=== PATIENT | female | born 1965 | race Caucasian/White ===

== ENCOUNTER 2021-05-21 12:17 | Inpatient (IN) | payer OTHER ==
[~2021-05-21] VITALS: Ht 162.6 cm; Wt 85.7 kg
[~2021-05-21 12:17] MED LIST: LIS10T GT
[2021-05-21 13:35] LABS: Basophils # (auto) 0.2 10 ^3/uL (0-0.2); Eosinophils # (auto) 0.1 10 ^3/uL (0-0.8); Hematocrit 26.6 % (36.0-46.0); Hemoglobin 9.3 g/dL (12.2-16.2); Lymphocytes # (auto) 1.8 10 ^3/uL (0.4-5.4); Mean Corpuscular Hgb Conc. 34.8 g/dL (32.0-36.0); Neutrophils # (auto) 6.8 10 ^3/uL (1.6-8.6)
[2021-05-21 13:37] LABS: Basophils % (auto) 1.6 % (0.0-2.0); Eosinophils % (auto) 0.8 % (0.0-7.0); Lymphocytes % (auto) 18.5 % (10.0-50.0); Mean Corpuscular Hemoglobin 38.8 pg (28.0-32.0); Mean Corpuscular Volume 111.4 fL (80.0-100.0); Monocytes % (auto) 9.8 % (0.0-12.0); Neutrophils % (auto) 69.3 % (37.0-80.0); Red Blood Cells 2.39 10^6/uL (4.0-5.20); Red Cell Distribution Width 14.8 % (11.8-14.3); White Blood Cell 9.9 10^3/uL (4.4-10.8)
[2021-05-21 13:43] LABS: Urine Bacteria NONE SEEN /hpf (None Seen); Urine Blood 3+ /uL (Negative); Urine Budding Yeast MANY /hpf (None Seen); Urine Hyaline Cast FEW /lpf (0 - 2); Urine Mucus FEW (None Seen); Urine Specific Gravity 1.021 (1.001-1.035); Urine WBC 61 /hpf (0 - 5)
[2021-05-21 14:04] LABS: Albumin 2.4 g/dL (3.4-5.0); Anion Gap 8 (5-15); Blood Urea Nitrogen 21 mg/dL (7-18); Calcium 8.3 mg/dL (8.5-10.1); Carbon Dioxide 23 mmol/L (21-32); Chloride 108 mmol/L (98-107); Glucose 101 mg/dL (74-106); Lipase 374 U/L (73-393); Potassium 3.2 mmol/L (3.5-5.1); Sodium 139 mmol/L (136-145)
[2021-05-21 14:09] LABS: Alanine Aminotransferase 26 U/L (13-56); Alkaline Phosphatase 148 U/L (45-117); Aspartate Aminotransferase 60 U/L (15-37); BUN/Creatinine Ratio 10.6; Bilirubin, Total 9.6 mg/dL (0.2-1.0); GFR African American 33 mL/min; GFR Non-African American 27 mL/min; Total Protein 7.7 g/dL (6.4-8.2)
[2021-05-21] MEDS ORDERED: POTASSIUM EFFERVESENT TAB 25 MEQ PO ONE (15:15)
[2021-05-21] MEDS ORDERED: traMADol HCL 50 MG TAB PO PRN ×2 (16:00→16:15)
[2021-05-21] MEDS ORDERED: PANTOPRAZOLE 40 MG/10 ML VIAL INJ IV ONE (16:00)
[2021-05-21] MEDS ORDERED: levoFLOXacin 500MG 100 ML IV ONE (16:00)
[2021-05-21] MEDS ORDERED: MORPHINE SULF INJ 2 MG/ML SYRINGE 1ML IV PRN ×2 (16:00)
[2021-05-21] MEDS ORDERED: PROMETHAZINE HCL 25 MG/ML 1ML IV PRN (16:00)
[2021-05-21] MEDS ORDERED: NITROGLYCERIN 0.4 MG SL TAB SL PRN (16:00)
[2021-05-21 16:37] LABS: Amylase 34 U/L (25-115); Lipase 183 U/L (73-393)
[2021-05-21] MEDS: FUROSEMIDE 40 MG TAB PO SCH (18:00)
[2021-05-21] MEDS: SPIRONOLACTONE 25 MG TAB PO SCH (18:06)
[2021-05-21 18:23] LABS: Hemoglobin 8.7 g/dL (12.2-16.2)
[2021-05-21 18:25] LABS: Hematocrit 24.6 % (36.0-46.0)
[2021-05-21 18:37] LABS: INR 1.85 (0.9-1.15); Partial Thromboplastin Time 35.6 sec (23.0-31.2)
[2021-05-21] MEDS: PANTOPRAZOLE 40 MG TAB PO SCH (21:40)
[2021-05-21] MEDS: metroNIDAZOLE 500MG/100ML 100 ML IV SCH (21:41)
[2021-05-21 22:00] VITALS: BP 119/46
[2021-05-22] VITALS (7 sets, daily range): BP systolic 99–142; BP diastolic 43–94
[2021-05-22 01:53] LABS: Hemoglobin 7.3 g/dL (12.2-16.2)
[2021-05-22 01:54] LABS: Hematocrit 20.3 % (36.0-46.0)
[2021-05-22] MEDS: SPIRONOLACTONE 25 MG TAB PO SCH (05:19)
[2021-05-22] MEDS: metroNIDAZOLE 500MG/100ML 100 ML IV SCH ×2 (05:19→15:03)
[2021-05-22] MEDS: FUROSEMIDE 40 MG TAB PO SCH (05:20)
[2021-05-22 06:06] LABS: Protein, Urine 111.9 mg/dL (0.0-11.9)
[2021-05-22 06:10] LABS: Urine Bacteria FEW /hpf (None Seen); Urine Blood 3+ /uL (Negative); Urine Mucus FEW (None Seen); Urine Specific Gravity 1.017 (1.001-1.035); Urine WBC 45 /hpf (0 - 5)
[2021-05-22] MEDS: levoFLOXacin 250MG 50 ML IV SCH (09:44)
[2021-05-22] MEDS: PANTOPRAZOLE 40 MG TAB PO SCH ×2 (09:44→22:52)
[2021-05-22] MEDS ORDERED: PHYTONADIONE (VIT K)10 MG/ML 1ML VIAL IV ONE (10:30)
[2021-05-22] MEDS ORDERED: phytonadione 10 MG in SODIUM CHL 0.9% 50 ML IV ONE (10:45)
[2021-05-22 11:49] LABS: Albumin 2.1 g/dL (3.4-5.0); Calcium 8.2 mg/dL (8.5-10.1); Potassium 3.1 mmol/L (3.5-5.1)
[2021-05-22 11:52] LABS: Bilirubin, Total 7.3 mg/dL (0.2-1.0); Total Protein 6.8 g/dL (6.4-8.2)
[2021-05-22] MEDS ORDERED: POTASSIUM CHL 20 Meq TABLET PO ONE (12:15)
[2021-05-22 13:22] LABS: % Iron Saturation 98.2 % (15-50)
[2021-05-22 14:36] LABS: Basophils # (auto) 0.1 10 ^3/uL (0-0.2); Eosinophils # (auto) 0.1 10 ^3/uL (0-0.8); Eosinophils % (auto) 1.6 % (0.0-7.0); Hemoglobin 7.8 g/dL (12.2-16.2); White Blood Cell 6.3 10^3/uL (4.4-10.8)
[2021-05-22 14:39] LABS: Basophils % (auto) 1.3 % (0.0-2.0); Hematocrit 22.3 % (36.0-46.0); Lymphocytes # (auto) 1.5 10 ^3/uL (0.4-5.4); Lymphocytes % (auto) 23.2 % (10.0-50.0); Mean Corpuscular Hemoglobin 38.8 pg (28.0-32.0); Mean Corpuscular Volume 110.8 fL (80.0-100.0); Monocytes # (auto) 0.8 10 ^3/uL (0-1.3); Monocytes % (auto) 12.1 % (0.0-12.0); Neutrophils # (auto) 3.9 10 ^3/uL (1.6-8.6); Neutrophils % (auto) 61.8 % (37.0-80.0); Nucleated Red Blood Cells % 0.1 %; Red Blood Cells 2.01 10^6/uL (4.0-5.20); Red Cell Distribution Width 14.7 % (11.8-14.3)
[2021-05-22] MEDS: ALBUMIN 25% 100 ML IV SCH ×2 (17:29→22:52)
[2021-05-22] MEDS: LACTULOSE 20Gm/30ML SOLN PO SCH (22:52)
[2021-05-23] VITALS (12 sets, daily range): BP systolic 95–128; BP diastolic 43–82
[2021-05-23] MEDS: metroNIDAZOLE 500MG/100ML 100 ML IV SCH ×4 (00:09→22:10)
[2021-05-23] MEDS: ALBUMIN 25% 100 ML IV SCH (05:00)
[2021-05-23 06:28] LABS: Eosinophils # (auto) 0.1 10 ^3/uL (0-0.8); Hematocrit 19.4 % (36.0-46.0); Lymphocytes # (auto) 1.6 10 ^3/uL (0.4-5.4); Mean Corpuscular Hgb Conc. 35.5 g/dL (32.0-36.0); Monocytes # (auto) 0.5 10 ^3/uL (0-1.3); Monocytes % (auto) 10.6 % (0.0-12.0); Neutrophils # (auto) 2.6 10 ^3/uL (1.6-8.6); White Blood Cell 4.9 10^3/uL (4.4-10.8)
[2021-05-23 06:31] LABS: Basophils # (auto) 0.1 10 ^3/uL (0-0.2); Basophils % (auto) 1.4 % (0.0-2.0); Eosinophils % (auto) 1.7 % (0.0-7.0); Lymphocytes % (auto) 32.1 % (10.0-50.0); Mean Corpuscular Hemoglobin 39.4 pg (28.0-32.0); Mean Corpuscular Volume 110.9 fL (80.0-100.0); Neutrophils % (auto) 54.2 % (37.0-80.0); Nucleated Red Blood Cells % 0.2 %; Red Blood Cells 1.75 10^6/uL (4.0-5.20); Red Cell Distribution Width 14.6 % (11.8-14.3)
[2021-05-23 06:40] LABS: Hemoglobin 6.9 g/dL (12.2-16.2)
[2021-05-23 06:48] LABS: Albumin 2.9 g/dL (3.4-5.0); Calcium 8.2 mg/dL (8.5-10.1); Potassium 3.1 mmol/L (3.5-5.1)
[2021-05-23 06:52] LABS: BUN/Creatinine Ratio 9.5; Bilirubin, Total 5.4 mg/dL (0.2-1.0); Total Protein 6.5 g/dL (6.4-8.2)
[2021-05-23 07:49] LABS: INR 2.4 (0.9-1.15)
[2021-05-23] MEDS: LACTULOSE 20Gm/30ML SOLN PO SCH (09:30)
[2021-05-23] MEDS: levoFLOXacin 250MG 50 ML IV SCH (09:30)
[2021-05-23] MEDS: PANTOPRAZOLE 40 MG TAB PO SCH ×2 (09:30→22:10)
[2021-05-23] MEDS: FUROSEMIDE 40 MG TAB PO SCH (09:30)
[2021-05-23] MEDS ORDERED: PHYTONADIONE (VIT K)10 MG/ML 1ML VIAL IV ONE (12:15)
[2021-05-23] MEDS ORDERED: POTASSIUM CHL 20 Meq TABLET PO ONE (12:30)
[2021-05-23] MEDS ORDERED: phytonadione 10 MG in SODIUM CHL 0.9% 50 ML IV ONE (12:45)
[2021-05-24 05:28] VITALS: BP 122/61
[2021-05-24] MEDS: metroNIDAZOLE 500MG/100ML 100 ML IV SCH (05:37)
[2021-05-24 06:13] LABS: Eosinophils # (auto) 0.1 10 ^3/uL (0-0.8); Hemoglobin 9.3 g/dL (12.2-16.2); Monocytes # (auto) 0.6 10 ^3/uL (0-1.3); Nucleated Red Blood Cells % 0.2 %
[2021-05-24 06:15] LABS: Basophils # (auto) 0.1 10 ^3/uL (0-0.2); Basophils % (auto) 1.3 % (0.0-2.0); Eosinophils % (auto) 1.9 % (0.0-7.0); Hematocrit 25.9 % (36.0-46.0); Lymphocytes # (auto) 1.7 10 ^3/uL (0.4-5.4); Lymphocytes % (auto) 27.9 % (10.0-50.0); Mean Corpuscular Hemoglobin 36.8 pg (28.0-32.0); Mean Corpuscular Hgb Conc. 36.1 g/dL (32.0-36.0); Mean Corpuscular Volume 102.1 fL (80.0-100.0); Monocytes % (auto) 9.5 % (0.0-12.0); Neutrophils # (auto) 3.6 10 ^3/uL (1.6-8.6); Neutrophils % (auto) 59.4 % (37.0-80.0); Red Blood Cells 2.54 10^6/uL (4.0-5.20)
[2021-05-24 06:20] LABS: Red Cell Distribution Width 22.6 % (11.8-14.3)
[2021-05-24 07:46] LABS: INR 1.72 (0.9-1.15)
[2021-05-24 09:00] VITALS: BP 98/65
[2021-05-24] MEDS: levoFLOXacin 250MG 50 ML IV SCH (09:58)
[2021-05-24] MEDS: FUROSEMIDE 40 MG TAB PO SCH (09:58)
[2021-05-24] MEDS: PANTOPRAZOLE 40 MG TAB PO SCH (09:59)
[2021-05-24] MEDS ORDERED: LACTULOSE 20Gm/30ML SOLN PO SCH (10:00)
[2021-05-24 10:45] VITALS: BP 112/72
[2021-05-24] MEDS ORDERED: POTASSIUM EFFERVESENT TAB 25 MEQ GT ONE (12:30)
[2021-05-25 12:01] LABS: Hepatitis B Surface Antibody Positive
[2021-05-25 12:28] LABS: Hepatitis A Total Antibody Negative
[2021-05-25 15:03] LABS: Hepatitis A Ab IgM Negative; Hepatitis B Core IgM Negative; Hepatitis B Surface Antigen Negative (Negative); Hepatitis C Antibody Negative (Negative)
[2021-05-25 15:10] LABS: Hepatitis B Core Total AB Positive; Hepatitis B Surface Antigen Negative (Negative); Hepatitis C Antibody Negative (Negative)
== END 2021-05-24 11:36 | disposition home or self-care (01) | DRG 432 ==
LOC: ER 12:17 → TELE 15:56 → TELE-WESTW 19:58
PROVIDERS: ADMIT Internal Medicine; ATTEND Family Medicine
PROC: 0W9G3ZZ Drainage of Peritoneal Cavity, Percutaneous Approach (ICD-10-PCS; principal; 2021-05-22)
PROC: 30233N1 Transfusion of Nonautologous Red Blood Cells into Peripheral Vein, Percutaneous Approach (ICD-10-PCS; 2021-05-23)
DX: K70.31 Alcoholic cirrhosis of liver with ascites (principal); N17.0 Acute kidney failure with tubular necrosis; B18.1 Chronic viral hepatitis B without delta-agent; D68.9 Coagulation defect, unspecified; N39.0 Urinary tract infection, site not specified; D64.9 Anemia, unspecified; D69.6 Thrombocytopenia, unspecified; E11.22 Type 2 diabetes mellitus with diabetic chronic kidney disease; Z20.822 Contact with and (suspected) exposure to COVID-19; E87.6 Hypokalemia; F17.210 Nicotine dependence, cigarettes, uncomplicated; F41.9 Anxiety disorder, unspecified; R80.9 Proteinuria, unspecified; R31.9 Hematuria, unspecified; F32.9 Major depressive disorder, single episode, unspecified; I12.9 Hypertensive chronic kidney disease with stage 1 through stage 4 chronic kidney disease, or unspecified chronic kidney disease; J45.909 Unspecified asthma, uncomplicated; N18.9 Chronic kidney disease, unspecified; Z83.3 Family history of diabetes mellitus; Z87.442 Personal history of urinary calculi; Z88.0 Allergy status to penicillin; Z88.5 Allergy status to narcotic agent; Z86.19 Personal history of other infectious and parasitic diseases; Z91.19 Patient's noncompliance with other medical treatment and regimen
CPT/HCPCS: 36415; 71045; 74176; 76700; 76775; 76942; 80053; 80074; 81001; 82140; 82150; 82270; 82378; 82570; 83540; 83550; 83690; 84156; 84300; 84484; 85014; 85018; 85025; 85045; 85610; 85730; 86704; 86706; 86708; 86803; 86850; 86900; 86901; 86920; 87086; 87205; 87340; 87426; 89051; 93005; 96365; 96375; C9113; G0378; J1956; J3430; J3490; P9047

== ENCOUNTER 2021-07-10 15:13 | Inpatient (IN) | payer OTHER ==
[~2021-07-10] VITALS: Ht 162.6 cm; Wt 75.7 kg
[2021-07-10 17:01] LABS: Eosinophils # (auto) 0.1 10 ^3/uL (0-0.8); Hemoglobin 7.6 g/dL (12.2-16.2); Monocytes # (auto) 0.9 10 ^3/uL (0-1.3); Neutrophils # (auto) 6.7 10 ^3/uL (1.6-8.6); White Blood Cell 9.2 10^3/uL (4.4-10.8)
[2021-07-10 17:04] LABS: Basophils # (auto) 0 10 ^3/uL (0-0.2); Basophils % (auto) 0.2 % (0.0-2.0); Eosinophils % (auto) 1.1 % (0.0-7.0); Hematocrit 21.9 % (36.0-46.0); Lymphocytes # (auto) 1.5 10 ^3/uL (0.4-5.4); Mean Corpuscular Hemoglobin 39.3 pg (28.0-32.0); Mean Corpuscular Hgb Conc. 34.9 g/dL (32.0-36.0); Mean Corpuscular Volume 112.6 fL (80.0-100.0); Monocytes % (auto) 9.7 % (0.0-12.0); Red Blood Cells 1.94 10^6/uL (4.0-5.20); Red Cell Distribution Width 15.3 % (11.8-14.3)
[2021-07-10 17:12] LABS: Albumin 2.5 g/dL (3.4-5.0); Calcium 9.3 mg/dL (8.5-10.1)
[2021-07-10 17:16] LABS: BUN/Creatinine Ratio 21.9; Bilirubin, Total 7.8 mg/dL (0.2-1.0); Total Protein 7.9 g/dL (6.4-8.2)
[2021-07-10 17:21] LABS: INR 1.49 (0.9-1.15); Partial Thromboplastin Time 34.2 sec (23.6-33.0)
[2021-07-10] MEDS ORDERED: IBUPROFEN 400 MG TAB PO PRN (23:00)
[2021-07-10] MEDS ORDERED: NITROGLYCERIN 0.4 MG SL TAB SL PRN (23:00)
[2021-07-10] MEDS ORDERED: ONDANSETRON HCL 4 MG/2 ML VIAL IV PRN (23:00)
[2021-07-10] MEDS ORDERED: OCTREOTIDE ACETATE 500 MCG in SODIUM CHL 0.9% 99 ML IV SCH (23:00)
[2021-07-10] MEDS ORDERED: POTASSIUM CHL 20MEQ/100ML 100 ML IV ONE (23:00)
[2021-07-10] MEDS ORDERED: ALBUMIN 25% 50 ML IV ONE (23:00)
[2021-07-11] MEDS: D5W/SOD CHLO 0.9% 1,000 ML IV SCH ×2 (02:46→18:56)
[2021-07-11 05:59] LABS: Potassium 3.4 mmol/L (3.5-5.1)
[2021-07-11 06:05] LABS: Albumin 2.5 g/dL (3.4-5.0); BUN/Creatinine Ratio 20.5
[2021-07-11 06:19] LABS: Basophils # (auto) 0.1 10 ^3/uL (0-0.2); Hematocrit 19.9 % (36.0-46.0); Neutrophils # (auto) 7.2 10 ^3/uL (1.6-8.6); Red Blood Cells 1.77 10^6/uL (4.0-5.20)
[2021-07-11 06:21] LABS: Basophils % (auto) 0.9 % (0.0-2.0); Eosinophils # (auto) 0 10 ^3/uL (0-0.8); Eosinophils % (auto) 0.5 % (0.0-7.0); Hemoglobin 7.1 g/dL (12.2-16.2); Lymphocytes # (auto) 1.4 10 ^3/uL (0.4-5.4); Lymphocytes % (auto) 14.2 % (10.0-50.0); Mean Corpuscular Hemoglobin 39.9 pg (28.0-32.0); Mean Corpuscular Hgb Conc. 35.5 g/dL (32.0-36.0); Mean Corpuscular Volume 112.4 fL (80.0-100.0); Monocytes # (auto) 0.9 10 ^3/uL (0-1.3); Monocytes % (auto) 9.5 % (0.0-12.0); Neutrophils % (auto) 74.9 % (37.0-80.0); Red Cell Distribution Width 14.8 % (11.8-14.3); White Blood Cell 9.6 10^3/uL (4.4-10.8)
[2021-07-11] MEDS: metroNIDAZOLE 500MG/100ML 100 ML IV SCH ×3 (06:45→21:22)
[2021-07-11] MEDS: ASCORBIC ACID 500 MG TAB PO SCH ×2 (09:55→21:22)
[2021-07-11] MEDS: MULTIPLE VITAMIN TAB PO SCH (09:55)
[2021-07-11] MEDS: ZINC SULFATE 220mg CAP or TAB PO SCH (09:56)
[2021-07-11] MEDS ORDERED: levoFLOXacin 250MG 50 ML IV ONE (12:15)
[2021-07-11] MEDS ORDERED: POTASSIUM CHLORIDE 8 MEQ TAB PO ONE (12:15)
[2021-07-11 13:00] VITALS: BP 102/54
[2021-07-11] MEDS: FAMOTIDINE (10MG/ML) 2ML VL IV SCH ×2 (13:32→21:22)
[2021-07-11 16:43] VITALS: BP 89/39
[2021-07-11 22:00] VITALS: BP 94/39
[2021-07-12] VITALS (7 sets, daily range): BP systolic 97–120; BP diastolic 42–62
[2021-07-12 05:10] LABS: Urine Bacteria MANY /hpf (None Seen); Urine Blood 3+ /uL (Negative); Urine Budding Yeast FEW /hpf (None Seen); Urine Hyaline Cast FEW /lpf (0 - 2); Urine Mucus FEW (None Seen); Urine Specific Gravity 1.013 (1.001-1.035); Urine WBC 4 /hpf (0 - 5)
[2021-07-12] MEDS: metroNIDAZOLE 500MG/100ML 100 ML IV SCH ×3 (05:38→21:49)
[2021-07-12 06:36] LABS: Basophils # (auto) 0.1 10 ^3/uL (0-0.2); Eosinophils # (auto) 0.1 10 ^3/uL (0-0.8); Eosinophils % (auto) 1.3 % (0.0-7.0)
[2021-07-12 06:40] LABS: Basophils % (auto) 1.3 % (0.0-2.0); Hematocrit 17.5 % (36.0-46.0); Lymphocytes # (auto) 1.5 10 ^3/uL (0.4-5.4); Lymphocytes % (auto) 22.1 % (10.0-50.0); Mean Corpuscular Hemoglobin 39.9 pg (28.0-32.0); Mean Corpuscular Hgb Conc. 35.6 g/dL (32.0-36.0); Mean Corpuscular Volume 112.1 fL (80.0-100.0); Monocytes # (auto) 0.9 10 ^3/uL (0-1.3); Neutrophils # (auto) 4.2 10 ^3/uL (1.6-8.6); Neutrophils % (auto) 62.3 % (37.0-80.0); Nucleated Red Blood Cells % 0.1 %; Red Blood Cells 1.56 10^6/uL (4.0-5.20); Red Cell Distribution Width 14.9 % (11.8-14.3); White Blood Cell 6.8 10^3/uL (4.4-10.8)
[2021-07-12 06:50] LABS: BUN/Creatinine Ratio 20.6; Bilirubin, Direct 2.8 mg/dL (0-0.2); Calcium 8.6 mg/dL (8.5-10.1); Potassium 3.2 mmol/L (3.5-5.1)
[2021-07-12 06:54] LABS: Hemoglobin 6.2 g/dL (12.2-16.2)
[2021-07-12 06:57] LABS: Bilirubin, Total 5.2 mg/dL (0.2-1.0); Phosphorus 3.2 mg/dL (2.5-4.90); Total Protein 6.5 g/dL (6.4-8.2)
[2021-07-12] MEDS: levoFLOXacin 250MG 50 ML IV SCH (09:45)
[2021-07-12] MEDS: ASCORBIC ACID 500 MG TAB PO SCH (09:46)
[2021-07-12] MEDS: MULTIPLE VITAMIN TAB PO SCH (09:46)
[2021-07-12] MEDS: ZINC SULFATE 220mg CAP or TAB PO SCH (09:46)
[2021-07-12] MEDS ORDERED: PANTOPRAZOLE 40 MG TAB PO ONE (10:00)
[2021-07-12] MEDS ORDERED: PANTOPRAZOLE 40 MG TAB PO SCH (10:00)
[2021-07-12] MEDS: PANTOPRAZOLE 40 MG TAB PO SCH ×2 (10:42→21:49)
[2021-07-12] MEDS: LACTULOSE 20Gm/30ML SOLN PO SCH ×2 (10:42→21:49)
[2021-07-12] MEDS: POTASSIUM CHL 10 Meq TABLET PO SCH (10:42)
[2021-07-12] MEDS ORDERED: FUROSEMIDE 20 MG/2 ML VIAL IV ONE (19:00)
[2021-07-13 00:45] VITALS: BP 104/43
[2021-07-13 01:02] VITALS: BP 105/64
[2021-07-13 04:20] VITALS: BP 106/64
[2021-07-13 05:45] VITALS: BP 110/50
[2021-07-13] MEDS: metroNIDAZOLE 500MG/100ML 100 ML IV SCH ×3 (05:52→23:16)
[2021-07-13 07:24] LABS: Basophils # (auto) 0.1 10 ^3/uL (0-0.2); Basophils % (auto) 1.4 % (0.0-2.0); Eosinophils # (auto) 0.1 10 ^3/uL (0-0.8)
[2021-07-13 07:26] LABS: Eosinophils % (auto) 1.4 % (0.0-7.0); Lymphocytes # (auto) 1.6 10 ^3/uL (0.4-5.4); Lymphocytes % (auto) 22.7 % (10.0-50.0); Mean Corpuscular Hemoglobin 36.2 pg (28.0-32.0); Mean Corpuscular Volume 103.6 fL (80.0-100.0); Monocytes % (auto) 13.9 % (0.0-12.0); Neutrophils # (auto) 4.4 10 ^3/uL (1.6-8.6); Neutrophils % (auto) 60.6 % (37.0-80.0); Nucleated Red Blood Cells % 0.1 %; Red Blood Cells 2.19 10^6/uL (4.0-5.20); Red Cell Distribution Width 23.8 % (11.8-14.3); White Blood Cell 7.2 10^3/uL (4.4-10.8)
[2021-07-13 07:31] LABS: Hematocrit 22.9 % (36.0-46.0)
[2021-07-13 07:42] LABS: BUN/Creatinine Ratio 18.8; Calcium 8.9 mg/dL (8.5-10.1)
[2021-07-13 07:51] LABS: Total Protein 6.6 g/dL (6.4-8.2)
[2021-07-13 07:56] LABS: Potassium 2.9 mmol/L (3.5-5.1)
[2021-07-13] MEDS ORDERED: POTASSIUM CHL 20 Meq TABLET PO ONE ×2 (08:45→09:45)
[2021-07-13] MEDS: PANTOPRAZOLE 40 MG TAB PO SCH ×3 (10:00→23:17)
[2021-07-13] MEDS: MULTIPLE VITAMIN TAB PO SCH (10:05)
[2021-07-13] MEDS: levoFLOXacin 250MG 50 ML IV SCH (10:05)
[2021-07-13] MEDS: LACTULOSE 20Gm/30ML SOLN PO SCH ×2 (10:05→23:17)
[2021-07-13] MEDS: POTASSIUM CHL 10 Meq TABLET PO SCH (10:06)
[2021-07-13 22:17] VITALS: BP 113/48
[2021-07-14 05:09] LABS: Eosinophils # (auto) 0.1 10 ^3/uL (0-0.8); Nucleated Red Blood Cells % 0.1 %
[2021-07-14 05:13] LABS: Basophils # (auto) 0.1 10 ^3/uL (0-0.2); Basophils % (auto) 1.8 % (0.0-2.0); Eosinophils % (auto) 1.7 % (0.0-7.0); Hematocrit 22.7 % (36.0-46.0); Lymphocytes # (auto) 1.8 10 ^3/uL (0.4-5.4); Lymphocytes % (auto) 23.8 % (10.0-50.0); Mean Corpuscular Hemoglobin 36.5 pg (28.0-32.0); Mean Corpuscular Hgb Conc. 35.3 g/dL (32.0-36.0); Mean Corpuscular Volume 103.4 fL (80.0-100.0); Monocytes % (auto) 12.9 % (0.0-12.0); Neutrophils # (auto) 4.5 10 ^3/uL (1.6-8.6); Neutrophils % (auto) 59.8 % (37.0-80.0); Red Blood Cells 2.19 10^6/uL (4.0-5.20); White Blood Cell 7.6 10^3/uL (4.4-10.8)
[2021-07-14 05:16] LABS: Red Cell Distribution Width 23.7 % (11.8-14.3)
[2021-07-14 05:23] LABS: INR 1.73 (0.9-1.15)
[2021-07-14 05:32] LABS: Calcium 8.9 mg/dL (8.5-10.1); Potassium 3.3 mmol/L (3.5-5.1)
[2021-07-14 05:34] LABS: BUN/Creatinine Ratio 16.8
[2021-07-14] MEDS: metroNIDAZOLE 500MG/100ML 100 ML IV SCH (05:45)
[2021-07-14 05:46] LABS: Bilirubin, Total 6.2 mg/dL (0.2-1.0); Total Protein 6.9 g/dL (6.4-8.2)
[2021-07-14] MEDS ORDERED: LIDOCAINE VISCOUS 2% 15ML UD ONE (08:31)
[2021-07-14] MEDS ORDERED: SODIUM CHLORIDE LOCK 10 ML ONE (08:31)
[2021-07-14] MEDS ORDERED: diphenhdrAMINE HCL 50 MG/1 ML VL ONE (08:31)
[2021-07-14] MEDS: levoFLOXacin 250MG 50 ML IV SCH (08:34)
[2021-07-14] MEDS: MULTIPLE VITAMIN TAB PO SCH (08:36)
[2021-07-14] MEDS: LACTULOSE 20Gm/30ML SOLN PO SCH ×2 (08:36→22:54)
[2021-07-14] MEDS: PANTOPRAZOLE 40 MG TAB PO SCH ×2 (08:36→08:37)
[2021-07-14] MEDS: POTASSIUM CHL 10 Meq TABLET PO SCH (08:36)
[2021-07-14 09:00] VITALS: BP 104/46
[2021-07-14 10:41] VITALS: BP 91/50
[2021-07-14 10:52] VITALS: BP 103/42
[2021-07-14 12:00] VITALS: BP 120/60
[2021-07-14] MEDS: fentaNYL CITRATE 100 MCG/2 ML VL ONE ×2 (13:19→13:24)
[2021-07-14] MEDS: MIDAZOLAM HCL 5 MG/ML-1ML VIAL ONE ×2 (13:19→13:24)
[2021-07-14] MEDS ORDERED: ALBUMIN 5% 250 ML IV ONE ×2 (14:00→14:02)
[2021-07-14] MEDS ORDERED: SODIUM CHLORIDE 0.9% 500 ML IV ONE (14:00)
[2021-07-14] MEDS: POTASSIUM CHL 20MEQ/100ML 100 ML IV SCH ×2 (15:04→18:58)
[2021-07-14] MEDS: OCTREOTIDE ACETATE 100 MCG/ML VL SUBCUT SCH ×2 (15:42→22:54)
[2021-07-14] MEDS ORDERED: cefTRIAXone 1GM/50ML D5W 50 ML IV ONE (16:30)
[2021-07-14 16:35] LABS: Protein, Urine 56.2 mg/dL (0.0-11.9)
[2021-07-14 16:36] LABS: Creatinine, Urine 120 mg/dL (30.0-125.0); Sodium Urine 11 mmol/L (40-220)
[2021-07-14 16:44] LABS: Protein, Urine 35.6 mg/dL (0.0-11.9)
[2021-07-14 22:23] VITALS: BP 104/45
[2021-07-15 05:27] VITALS: BP 99/34
[2021-07-15 05:52] LABS: INR 1.72 (0.9-1.15)
[2021-07-15 06:01] LABS: Potassium 4.5 mmol/L (3.5-5.1)
[2021-07-15] MEDS: OCTREOTIDE ACETATE 100 MCG/ML VL SUBCUT SCH ×2 (06:06→14:00)
[2021-07-15 06:15] LABS: Basophils # (auto) 0.1 10 ^3/uL (0-0.2); Eosinophils # (auto) 0.1 10 ^3/uL (0-0.8); Hemoglobin 8.2 g/dL (12.2-16.2); Neutrophils # (auto) 4.6 10 ^3/uL (1.6-8.6)
[2021-07-15 06:23] LABS: Basophils % (auto) 0.9 % (0.0-2.0); Eosinophils % (auto) 1.5 % (0.0-7.0); Lymphocytes # (auto) 1.1 10 ^3/uL (0.4-5.4); Lymphocytes % (auto) 16.4 % (10.0-50.0); Mean Corpuscular Hemoglobin 37.3 pg (28.0-32.0); Mean Corpuscular Hgb Conc. 35.6 g/dL (32.0-36.0); Mean Corpuscular Volume 104.9 fL (80.0-100.0); Monocytes # (auto) 0.8 10 ^3/uL (0-1.3); Monocytes % (auto) 11.6 % (0.0-12.0); Neutrophils % (auto) 69.6 % (37.0-80.0); Nucleated Red Blood Cells % 0.1 %; Red Blood Cells 2.19 10^6/uL (4.0-5.20); White Blood Cell 6.6 10^3/uL (4.4-10.8)
[2021-07-15 06:24] LABS: Albumin 2.1 g/dL (3.4-5.0); BUN/Creatinine Ratio 15.7; Bilirubin, Total 5.7 mg/dL (0.2-1.0); Calcium 8.7 mg/dL (8.5-10.1); Magnesium 2.6 mg/dL (1.6-2.6); Phosphorus 2.6 mg/dL (2.5-4.90); Total Protein 6.3 g/dL (6.4-8.2)
[2021-07-15 06:25] LABS: Red Cell Distribution Width 22.9 % (11.8-14.3)
[2021-07-15] MEDS: LACTULOSE 20Gm/30ML SOLN PO SCH (08:08)
[2021-07-15] MEDS: PANTOPRAZOLE 40 MG TAB PO SCH (08:09)
[2021-07-15] MEDS: POTASSIUM CHL 10 Meq TABLET PO SCH (08:09)
[2021-07-15] MEDS: MULTIPLE VITAMIN TAB PO SCH (08:09)
[2021-07-15] MEDS ORDERED: cefTRIAXone 1GM/50ML D5W 50 ML IV SCH (09:00)
[2021-07-15] MEDS ORDERED: MIDODRINE HCL 10 MG TAB PO SCH (12:00)
== END 2021-07-15 15:30 | disposition home or self-care (01) | DRG 432 ==
LOC: ER 15:13 → TELE 22:50 → TELE-WESTW 07-11 11:43
PROVIDERS: ADMIT Nurse Practitioner Family; ATTEND Internal Medicine
PROC: 30233N1 Transfusion of Nonautologous Red Blood Cells into Peripheral Vein, Percutaneous Approach (ICD-10-PCS; 2021-07-12)
PROC: 0W9G3ZZ Drainage of Peritoneal Cavity, Percutaneous Approach (ICD-10-PCS; 2021-07-14)
PROC: 30233K1 Transfusion of Nonautologous Frozen Plasma into Peripheral Vein, Percutaneous Approach (ICD-10-PCS; 2021-07-14)
PROC: 06L38CZ Occlusion of Esophageal Vein with Extraluminal Device, Via Natural or Artificial Opening Endoscopic (ICD-10-PCS; principal; 2021-07-14 13:13)
DX: K70.31 Alcoholic cirrhosis of liver with ascites (principal); N17.0 Acute kidney failure with tubular necrosis; K76.7 Hepatorenal syndrome; I85.11 Secondary esophageal varices with bleeding; K76.6 Portal hypertension; N18.4 Chronic kidney disease, stage 4 (severe); D68.4 Acquired coagulation factor deficiency; J98.11 Atelectasis; Z20.822 Contact with and (suspected) exposure to COVID-19; D69.59 Other secondary thrombocytopenia; E87.6 Hypokalemia; I12.9 Hypertensive chronic kidney disease with stage 1 through stage 4 chronic kidney disease, or unspecified chronic kidney disease; D63.8 Anemia in other chronic diseases classified elsewhere; F41.9 Anxiety disorder, unspecified; F32.9 Major depressive disorder, single episode, unspecified; E11.22 Type 2 diabetes mellitus with diabetic chronic kidney disease; F17.200 Nicotine dependence, unspecified, uncomplicated; R16.1 Splenomegaly, not elsewhere classified; J45.909 Unspecified asthma, uncomplicated; K31.89 Other diseases of stomach and duodenum; Z66 Do not resuscitate; K57.90 Diverticulosis of intestine, part unspecified, without perforation or abscess without bleeding; Z88.5 Allergy status to narcotic agent; Z88.0 Allergy status to penicillin; Z79.899 Other long term (current) drug therapy; Z80.3 Family history of malignant neoplasm of breast; Z80.6 Family history of leukemia; Z82.49 Family history of ischemic heart disease and other diseases of the circulatory system; Z87.442 Personal history of urinary calculi
CPT/HCPCS: 36415; 43244; 71045; 71250; 74176; 76604; 76700; 76942; 80048; 80053; 80076; 81001; 82570; 83036; 83735; 83880; 84100; 84132; 84156; 84300; 85025; 85610; 85730; 86850; 86900; 86901; 86920; 87426; 96365; 96366; 96367; G0378; J0696; J2250; J3480; J3490

== ENCOUNTER 2021-07-29 11:21 | Inpatient (IN) | payer OTHER ==
[~2021-07-29] VITALS: Ht 167.6 cm; Wt 70.0 kg
[2021-07-29 12:19] LABS: Eosinophils # (auto) 0.1 10 ^3/uL (0-0.8); Eosinophils % (auto) 1.1 % (0.0-7.0); Hematocrit 21.4 % (36.0-46.0); Hemoglobin 7.4 g/dL (12.2-16.2); Monocytes # (auto) 1.1 10 ^3/uL (0-1.3); White Blood Cell 8.6 10^3/uL (4.4-10.8)
[2021-07-29 12:22] LABS: Basophils # (auto) 0.2 10 ^3/uL (0-0.2); Basophils % (auto) 1.8 % (0.0-2.0); Lymphocytes # (auto) 1.5 10 ^3/uL (0.4-5.4); Lymphocytes % (auto) 17.7 % (10.0-50.0); Mean Corpuscular Hemoglobin 37.6 pg (28.0-32.0); Mean Corpuscular Hgb Conc. 34.5 g/dL (32.0-36.0); Mean Corpuscular Volume 109.1 fL (80.0-100.0); Monocytes % (auto) 12.5 % (0.0-12.0); Neutrophils # (auto) 5.8 10 ^3/uL (1.6-8.6); Neutrophils % (auto) 66.9 % (37.0-80.0); Red Blood Cells 1.96 10^6/uL (4.0-5.20)
[2021-07-29 12:31] LABS: Red Cell Distribution Width 23.1 % (11.8-14.3)
[2021-07-29 12:37] LABS: Chloride 107 mmol/L (98-107); Potassium 4.7 mmol/L (3.5-5.1); Sodium 135 mmol/L (136-145)
[2021-07-29 12:50] LABS: Alanine Aminotransferase 23 U/L (13-56); Albumin 2.3 g/dL (3.4-5.0); Alkaline Phosphatase 84 U/L (45-117); Anion Gap 13 (5-15); Aspartate Aminotransferase 53 U/L (15-37); BUN/Creatinine Ratio 21.5; Bilirubin, Total 5.5 mg/dL (0.2-1.0); Blood Urea Nitrogen 53 mg/dL (7-18); Carbon Dioxide 15 mmol/L (21-32); GFR African American 26 mL/min; GFR Non-African American 21 mL/min; Glucose 100 mg/dL (74-106); Total Protein 7.6 g/dL (6.4-8.2)
[2021-07-30] MEDS ORDERED: TEMAZEPAM 15 MG CAP PO PRN (00:30)
[2021-07-30] MEDS ORDERED: ONDANSETRON HCL 4 MG/2 ML VIAL IV PRN (00:30)
[2021-07-30 01:04] LABS: INR 1.6 (0.9-1.15)
[2021-07-30 09:35] LABS: Urine Bacteria MOD /hpf (None Seen); Urine Blood 3+ /uL (Negative); Urine Budding Yeast FEW /hpf (None Seen); Urine Specific Gravity 1.013 (1.001-1.035); Urine WBC 5 /hpf (0 - 5)
[2021-07-30] MEDS: LACTULOSE 20Gm/30ML SOLN PO SCH ×2 (11:00→21:45)
[2021-07-30] MEDS: PANTOPRAZOLE 40 MG TAB PO SCH (11:00)
[2021-07-30] MEDS: ALBUMIN 25% 100 ML IV SCH ×2 (11:30→19:49)
[2021-07-30] MEDS ORDERED: POTA1TAB4 PO (13:16)
[2021-07-30] MEDS ORDERED: LACT10SO3 PO (13:16)
[2021-07-30] MEDS ORDERED: MET500T PO (13:16)
[2021-07-30] MEDS ORDERED: LEVO-28 PO (13:16)
[2021-07-30 22:30] VITALS: BP 96/56
[2021-07-31] VITALS (8 sets, daily range): BP systolic 91–120; BP diastolic 42–59
[2021-07-31] MEDS: ALBUMIN 25% 100 ML IV SCH ×3 (02:58→17:47)
[2021-07-31 06:35] LABS: Albumin 2.8 g/dL (3.4-5.0); BUN/Creatinine Ratio 21.5; Bilirubin, Total 4.6 mg/dL (0.2-1.0); Calcium 9.2 mg/dL (8.5-10.1); Total Protein 6.6 g/dL (6.4-8.2)
[2021-07-31 08:02] LABS: Basophils # (auto) 0.1 10 ^3/uL (0-0.2); Eosinophils # (auto) 0.1 10 ^3/uL (0-0.8); Eosinophils % (auto) 1.5 % (0.0-7.0); Monocytes # (auto) 0.8 10 ^3/uL (0-1.3)
[2021-07-31 08:07] LABS: Basophils % (auto) 0.9 % (0.0-2.0); Hematocrit 17.9 % (36.0-46.0); Lymphocytes # (auto) 1.6 10 ^3/uL (0.4-5.4); Lymphocytes % (auto) 26.1 % (10.0-50.0); Mean Corpuscular Hemoglobin 37.3 pg (28.0-32.0); Mean Corpuscular Volume 109.7 fL (80.0-100.0); Monocytes % (auto) 12.5 % (0.0-12.0); Neutrophils # (auto) 3.6 10 ^3/uL (1.6-8.6); Nucleated Red Blood Cells % 0.1 %; Red Blood Cells 1.63 10^6/uL (4.0-5.20); White Blood Cell 6.1 10^3/uL (4.4-10.8)
[2021-07-31 08:33] LABS: Red Cell Distribution Width 22.4 % (11.8-14.3)
[2021-07-31 08:40] LABS: Hemoglobin 6.1 g/dL (12.2-16.2)
[2021-07-31] MEDS ORDERED: FUROSEMIDE 20 MG/2 ML VIAL IV ONE (10:15)
[2021-07-31] MEDS: PANTOPRAZOLE 40 MG TAB PO SCH ×2 (10:20→21:55)
[2021-07-31] MEDS: LACTULOSE 20Gm/30ML SOLN PO SCH ×2 (10:20→21:55)
[2021-07-31] MEDS: METOCLOPRAMIDE HCL 5MG/ml INJ 2ml VIAL IV SCH (21:52)
[2021-08-01 05:25] LABS: Basophils # (auto) 0.1 10 ^3/uL (0-0.2); Eosinophils # (auto) 0.1 10 ^3/uL (0-0.8); Hemoglobin 7.6 g/dL (12.2-16.2); Monocytes # (auto) 1.1 10 ^3/uL (0-1.3); Nucleated Red Blood Cells % 0.1 %; White Blood Cell 7.1 10^3/uL (4.4-10.8)
[2021-08-01 05:28] LABS: Eosinophils % (auto) 1.2 % (0.0-7.0); Lymphocytes # (auto) 1.8 10 ^3/uL (0.4-5.4); Lymphocytes % (auto) 24.8 % (10.0-50.0); Mean Corpuscular Hemoglobin 36.7 pg (28.0-32.0); Mean Corpuscular Hgb Conc. 34.7 g/dL (32.0-36.0); Mean Corpuscular Volume 105.6 fL (80.0-100.0); Monocytes % (auto) 15.6 % (0.0-12.0); Neutrophils # (auto) 4.1 10 ^3/uL (1.6-8.6); Neutrophils % (auto) 57.4 % (37.0-80.0); Red Blood Cells 2.08 10^6/uL (4.0-5.20)
[2021-08-01 05:37] VITALS: BP 104/47
[2021-08-01 05:43] LABS: BUN/Creatinine Ratio 19.7; Calcium 9.6 mg/dL (8.5-10.1); Potassium 4.1 mmol/L (3.5-5.1)
[2021-08-01 06:23] LABS: Red Cell Distribution Width 24.6 % (11.8-14.3)
[2021-08-01 09:00] VITALS: BP 100/40
[2021-08-01] MEDS: METOCLOPRAMIDE HCL 5MG/ml INJ 2ml VIAL IV SCH (09:23)
[2021-08-01] MEDS: PANTOPRAZOLE 40 MG TAB PO SCH (09:23)
[2021-08-01] MEDS: LACTULOSE 20Gm/30ML SOLN PO SCH (09:23)
[2021-08-01 14:39] VITALS: BP 104/52
== END 2021-08-01 15:37 | disposition home health service (06) | DRG 441 ==
LOC: ER 11:21 → OVERFLOW 07-30 00:25 → WEST WING 07-30 17:29
PROVIDERS: ADMIT Nurse Practitioner; ATTEND Internal Medicine
PROC: 0W9G3ZZ Drainage of Peritoneal Cavity, Percutaneous Approach (ICD-10-PCS; principal; 2021-07-31)
PROC: 30233N1 Transfusion of Nonautologous Red Blood Cells into Peripheral Vein, Percutaneous Approach (ICD-10-PCS; 2021-07-31)
DX: K72.90 Hepatic failure, unspecified without coma (principal); E43 Unspecified severe protein-calorie malnutrition; K76.6 Portal hypertension; N18.4 Chronic kidney disease, stage 4 (severe); E72.20 Disorder of urea cycle metabolism, unspecified; D68.9 Coagulation defect, unspecified; K70.31 Alcoholic cirrhosis of liver with ascites; D64.9 Anemia, unspecified; D69.6 Thrombocytopenia, unspecified; E11.22 Type 2 diabetes mellitus with diabetic chronic kidney disease; E78.5 Hyperlipidemia, unspecified; I12.9 Hypertensive chronic kidney disease with stage 1 through stage 4 chronic kidney disease, or unspecified chronic kidney disease; J45.909 Unspecified asthma, uncomplicated; Z20.822 Contact with and (suspected) exposure to COVID-19; F32.9 Major depressive disorder, single episode, unspecified; F41.9 Anxiety disorder, unspecified; Z88.0 Allergy status to penicillin; Z80.3 Family history of malignant neoplasm of breast; Z88.5 Allergy status to narcotic agent; Z87.442 Personal history of urinary calculi; Z68.24 Body mass index [BMI] 24.0-24.9, adult
CPT/HCPCS: 36415; 71250; 74176; 76942; 80048; 80053; 81001; 82140; 83605; 84484; 85025; 85610; 85730; 86850; 86900; 86901; 86920; 87426; 96365; G0378; P9047

== ENCOUNTER 2021-08-28 18:03 | Inpatient (IN) | payer OTHER ==
[~2021-08-28] VITALS: Ht 162.6 cm; Wt 59.9 kg
[~2021-08-28 18:03] MED LIST changes: +LACT10SO3 PO; -LIS10T GT; +POTA1TAB4 PO
[2021-08-28 19:36] LABS: Eosinophils # (auto) 0.1 10 ^3/uL (0-0.8); Lymphocytes # (auto) 1.5 10 ^3/uL (0.4-5.4)
[2021-08-28 19:38] LABS: Basophils # (auto) 0.2 10 ^3/uL (0-0.2); Basophils % (auto) 3.1 % (0.0-2.0); Lymphocytes % (auto) 19.6 % (10.0-50.0); Mean Corpuscular Hemoglobin 38.8 pg (28.0-32.0); Mean Corpuscular Volume 110.7 fL (80.0-100.0); Monocytes % (auto) 12.1 % (0.0-12.0); Neutrophils % (auto) 64.2 % (37.0-80.0); Nucleated Red Blood Cells % 0.1 %; Red Blood Cells 1.63 10^6/uL (4.0-5.20); White Blood Cell 7.8 10^3/uL (4.4-10.8)
[2021-08-28 19:44] LABS: Albumin 2.4 g/dL (3.4-5.0); Calcium 9.6 mg/dL (8.5-10.1); Potassium 4.8 mmol/L (3.5-5.1)
[2021-08-28 19:47] LABS: Red Cell Distribution Width 20.1 % (11.8-14.3)
[2021-08-28 19:48] LABS: BUN/Creatinine Ratio 16.2; Bilirubin, Total 6.3 mg/dL (0.2-1.0); Total Protein 7.7 g/dL (6.4-8.2)
[2021-08-28 19:49] LABS: INR 1.6 (0.9-1.15); Partial Thromboplastin Time 36.7 sec (23.6-33.0)
[2021-08-28 19:59] LABS: Hemoglobin 6.3 g/dL (12.2-16.2)
[2021-08-28] MEDS ORDERED: ONDANSETRON HCL 4 MG/2 ML VIAL IV PRN (20:45)
[2021-08-28] MEDS ORDERED: ACETAMINOPHEN 325 MG TAB PO PRN (20:45)
[2021-08-28] MEDS ORDERED: DOCUSATE SOD 100 MG CAP PO PRN (20:45)
[2021-08-28] MEDS ORDERED: NITROGLYCERIN 0.4 MG SL TAB SL PRN (21:00)
[2021-08-28] MEDS: SODIUM CHLORIDE 0.9% 1,000 ML IV SCH (23:43)
[2021-08-28] MEDS: FAMOTIDINE (10MG/ML) 2ML VL IV SCH (23:44)
[2021-08-28] MEDS: ASCORBIC ACID 500 MG TAB PO SCH (23:44)
[2021-08-29] VITALS (9 sets, daily range): BP systolic 105–143; BP diastolic 24–79
[2021-08-29] MEDS: LACTULOSE 20Gm/30ML SOLN PO SCH ×4 (01:37→17:34)
[2021-08-29] MEDS ORDERED: DEXTROSE (50%) 50ML SYRG IV PRN (03:45)
[2021-08-29] MEDS: ACCU-CHEK COMFORT CURVE STRIP VI SCH ×4 (06:26→21:16)
[2021-08-29] MEDS: InsuLIN REG 1unit/0.01ml Soln (100units/ml) SC SCH ×4 (06:26→21:50)
[2021-08-29] MEDS: FAMOTIDINE (10MG/ML) 2ML VL IV SCH (09:34)
[2021-08-29] MEDS: ZINC SULFATE 220mg CAP or TAB PO SCH (09:34)
[2021-08-29] MEDS: MULTIPLE VITAMIN TAB PO SCH (09:35)
[2021-08-29] MEDS: ASCORBIC ACID 500 MG TAB PO SCH ×2 (09:35→21:15)
[2021-08-29] MEDS ORDERED: cefTRIAXone 1GM/50ML D5W 50 ML IV ONE (10:30)
[2021-08-29 11:53] LABS: Eosinophils # (auto) 0.1 10 ^3/uL (0-0.8); Hemoglobin 7.2 g/dL (12.2-16.2); Monocytes # (auto) 0.8 10 ^3/uL (0-1.3)
[2021-08-29 11:56] LABS: Basophils # (auto) 0.1 10 ^3/uL (0-0.2); Basophils % (auto) 0.9 % (0.0-2.0); Eosinophils % (auto) 1.1 % (0.0-7.0); Hematocrit 20.7 % (36.0-46.0); Lymphocytes # (auto) 0.9 10 ^3/uL (0.4-5.4); Lymphocytes % (auto) 13.3 % (10.0-50.0); Mean Corpuscular Hemoglobin 34.9 pg (28.0-32.0); Mean Corpuscular Volume 99.6 fL (80.0-100.0); Monocytes % (auto) 12.1 % (0.0-12.0); Neutrophils # (auto) 4.7 10 ^3/uL (1.6-8.6); Neutrophils % (auto) 72.6 % (37.0-80.0); Red Blood Cells 2.08 10^6/uL (4.0-5.20); White Blood Cell 6.4 10^3/uL (4.4-10.8)
[2021-08-29 12:01] LABS: Calcium 9.3 mg/dL (8.5-10.1); Potassium 4.7 mmol/L (3.5-5.1)
[2021-08-29 12:07] LABS: Albumin 2.2 g/dL (3.4-5.0); BUN/Creatinine Ratio 18.2; Bilirubin, Total 6.9 mg/dL (0.2-1.0); Total Protein 7.2 g/dL (6.4-8.2)
[2021-08-29] MEDS: SODIUM CHLORIDE 0.9% 1,000 ML IV SCH (13:25)
[2021-08-29 13:27] LABS: Urine Bacteria NONE SEEN /hpf (None Seen); Urine Blood 3+ /uL (Negative); Urine Specific Gravity 1.012 (1.001-1.035); Urine WBC 12 /hpf (0 - 5)
[2021-08-30] MEDS: LACTULOSE 20Gm/30ML SOLN PO SCH ×4 (00:41→17:37)
[2021-08-30 05:00] VITALS: BP 111/60
[2021-08-30] MEDS: InsuLIN REG 1unit/0.01ml Soln (100units/ml) SC SCH ×4 (06:11→20:56)
[2021-08-30] MEDS: ACCU-CHEK COMFORT CURVE STRIP VI SCH ×4 (06:11→20:53)
[2021-08-30] MEDS: SODIUM CHLORIDE 0.9% 1,000 ML IV SCH (06:11)
[2021-08-30 07:45] LABS: Hemoglobin 7.2 g/dL (12.2-16.2)
[2021-08-30 07:47] LABS: Hematocrit 20.4 % (36.0-46.0); Mean Corpuscular Hemoglobin 35.5 pg (28.0-32.0); Mean Corpuscular Hgb Conc. 35.2 g/dL (32.0-36.0); Mean Corpuscular Volume 100.9 fL (80.0-100.0); Red Blood Cells 2.02 10^6/uL (4.0-5.20); Red Cell Distribution Width 29.8 % (11.8-14.3); White Blood Cell 8.6 10^3/uL (4.4-10.8)
[2021-08-30 07:52] LABS: Basophils % (manual) 0 (0.0-2.0); Blast Cells 0; Metamyelocytes % 0; Myelocytes % 0; Promyelocytes % 0; Reactive Lymphocytes 0
[2021-08-30 07:55] LABS: Albumin 2.2 g/dL (3.4-5.0); Calcium 9.2 mg/dL (8.5-10.1)
[2021-08-30 07:58] LABS: BUN/Creatinine Ratio 15.8; Bilirubin, Total 6.3 mg/dL (0.2-1.0); Total Protein 7.5 g/dL (6.4-8.2)
[2021-08-30 09:00] VITALS: BP 113/49
[2021-08-30 09:30] LABS: Band Neutrophils % (manual) 2; Eosinophils % (manual) 1 (0-7); Lymphocytes % (manual) 15 (10.0-50.0); Monocytes % (manual) 9 (0-12)
[2021-08-30] MEDS: ZINC SULFATE 220mg CAP or TAB PO SCH (10:37)
[2021-08-30] MEDS: FAMOTIDINE (10MG/ML) 2ML VL IV SCH (10:37)
[2021-08-30] MEDS: cefTRIAXone 1GM/50ML D5W 50 ML IV SCH (10:37)
[2021-08-30] MEDS: ASCORBIC ACID 500 MG TAB PO SCH (10:38)
[2021-08-30] MEDS: MULTIPLE VITAMIN TAB PO SCH (10:38)
[2021-08-30] MEDS ORDERED: SPIRONOLACTONE 25 MG TAB PO ONE (13:00)
[2021-08-30] MEDS ORDERED: FUROSEMIDE 40 MG/4 ML VIAL IV ONE (13:00)
[2021-08-30 13:08] VITALS: BP 118/56
[2021-08-30 16:28] VITALS: BP 117/58
[2021-08-30 17:39] LABS: Protein, Urine 24.8 mg/dL (0.0-11.9)
[2021-08-30 18:00] LABS: Urine Bacteria FEW /hpf (None Seen); Urine Blood 3+ /uL (Negative); Urine Hyaline Cast FEW /lpf (0 - 2); Urine Mucus FEW (None Seen); Urine Specific Gravity 1.008 (1.001-1.035); Urine WBC 16 /hpf (0 - 5)
[2021-08-30 22:00] VITALS: BP 103/50
[2021-08-31] VITALS (7 sets, daily range): BP systolic 92–129; BP diastolic 42–63
[2021-08-31] MEDS: LACTULOSE 20Gm/30ML SOLN PO SCH ×3 (00:17→22:28)
[2021-08-31] MEDS: ACCU-CHEK COMFORT CURVE STRIP VI SCH ×4 (06:46→22:28)
[2021-08-31] MEDS: InsuLIN REG 1unit/0.01ml Soln (100units/ml) SC SCH ×4 (06:47→22:30)
[2021-08-31] MEDS: SPIRONOLACTONE 25 MG TAB PO SCH (09:38)
[2021-08-31] MEDS: cefTRIAXone 1GM/50ML D5W 50 ML IV SCH (09:38)
[2021-08-31] MEDS: MULTIPLE VITAMIN TAB PO SCH (09:38)
[2021-08-31] MEDS: FAMOTIDINE (10MG/ML) 2ML VL IV SCH (09:38)
[2021-08-31] MEDS ORDERED: FUROSEMIDE 40 MG/4 ML VIAL IV SCH (10:00)
[2021-08-31 10:48] LABS: Hematocrit 16.8 % (36.0-46.0); Mean Corpuscular Hemoglobin 35.6 pg (28.0-32.0); Mean Corpuscular Hgb Conc. 35.3 g/dL (32.0-36.0); Red Blood Cells 1.66 10^6/uL (4.0-5.20)
[2021-08-31 10:51] LABS: White Blood Cell 6.1 10^3/uL (4.4-10.8)
[2021-08-31 11:08] LABS: Basophils % (manual) 0 (0.0-2.0); Blast Cells 0; Hemoglobin 5.9 g/dL (12.2-16.2); Metamyelocytes % 0; Myelocytes % 0; Promyelocytes % 0; Reactive Lymphocytes 0; Red Cell Distribution Width 28.8 % (11.8-14.3)
[2021-08-31 11:18] LABS: Potassium 3.1 mmol/L (3.5-5.1)
[2021-08-31 11:26] LABS: Albumin 1.8 g/dL (3.4-5.0); Bilirubin, Total 4.3 mg/dL (0.2-1.0); Calcium 8.8 mg/dL (8.5-10.1); Total Protein 6.5 g/dL (6.4-8.2)
[2021-08-31 12:12] LABS: INR 1.84 (0.9-1.15); Partial Thromboplastin Time 46.1 sec (23.6-33.0)
[2021-08-31 12:32] LABS: Band Neutrophils % (manual) 3; Eosinophils % (manual) 4 (0-7); Lymphocytes % (manual) 13 (10.0-50.0); Monocytes % (manual) 7 (0-12)
[2021-08-31] MEDS: PANTOPRAZOLE 40 MG/10 ML VIAL INJ IV SCH (22:28)
[2021-09-01] VITALS (7 sets, daily range): BP systolic 110–134; BP diastolic 51–78
[2021-09-01 05:41] LABS: Basophils # (auto) 0.1 10 ^3/uL (0-0.2); Basophils % (auto) 0.8 % (0.0-2.0); Eosinophils # (auto) 0.1 10 ^3/uL (0-0.8); Eosinophils % (auto) 1.6 % (0.0-7.0); Hematocrit 27.8 % (36.0-46.0); Hemoglobin 9.7 g/dL (12.2-16.2); Lymphocytes # (auto) 1.7 10 ^3/uL (0.4-5.4); Lymphocytes % (auto) 21.7 % (10.0-50.0); Mean Corpuscular Hemoglobin 33.8 pg (28.0-32.0); Mean Corpuscular Volume 96.5 fL (80.0-100.0); Monocytes % (auto) 13.2 % (0.0-12.0); Neutrophils # (auto) 4.9 10 ^3/uL (1.6-8.6); Neutrophils % (auto) 62.7 % (37.0-80.0); Nucleated Red Blood Cells % 0.1 %; Red Blood Cells 2.88 10^6/uL (4.0-5.20); White Blood Cell 7.8 10^3/uL (4.4-10.8)
[2021-09-01 05:51] LABS: Potassium 3.3 mmol/L (3.5-5.1)
[2021-09-01 05:53] LABS: BUN/Creatinine Ratio 13.5
[2021-09-01 06:22] LABS: Red Cell Distribution Width 24.4 % (11.8-14.3)
[2021-09-01] MEDS: ACCU-CHEK COMFORT CURVE STRIP VI SCH ×2 (06:47→11:57)
[2021-09-01] MEDS: InsuLIN REG 1unit/0.01ml Soln (100units/ml) SC SCH ×2 (06:47→11:30)
[2021-09-01] MEDS: LACTULOSE 20Gm/30ML SOLN PO SCH (09:31)
[2021-09-01] MEDS: cefTRIAXone 1GM/50ML D5W 50 ML IV SCH (09:31)
[2021-09-01] MEDS: PANTOPRAZOLE 40 MG/10 ML VIAL INJ IV SCH (09:31)
[2021-09-01] MEDS: SPIRONOLACTONE 25 MG TAB PO SCH (09:31)
[2021-09-01] MEDS: MULTIPLE VITAMIN TAB PO SCH (09:31)
[2021-09-01] MEDS ORDERED: POTASSIUM EFFERVESENT TAB 25 MEQ PO ONE (09:45)
== END 2021-09-01 13:11 | disposition home or self-care (01) | DRG 432 ==
LOC: ER 18:03 → TELE 20:53 → TELE-EAST 08-29 03:55 → TELE-CENTR 08-29 09:41
PROVIDERS: ADMIT Nurse Practitioner Family; ATTEND Internal Medicine
PROC: 30233N1 Transfusion of Nonautologous Red Blood Cells into Peripheral Vein, Percutaneous Approach (ICD-10-PCS; 2021-08-29)
PROC: 0W9G3ZZ Drainage of Peritoneal Cavity, Percutaneous Approach (ICD-10-PCS; principal; 2021-08-31)
PROC: 30233K1 Transfusion of Nonautologous Frozen Plasma into Peripheral Vein, Percutaneous Approach (ICD-10-PCS; 2021-09-01)
DX: K70.31 Alcoholic cirrhosis of liver with ascites (principal); K65.2 Spontaneous bacterial peritonitis; K76.6 Portal hypertension; N17.9 Acute kidney failure, unspecified; N18.4 Chronic kidney disease, stage 4 (severe); D68.9 Coagulation defect, unspecified; E44.0 Moderate protein-calorie malnutrition; K72.90 Hepatic failure, unspecified without coma; D64.9 Anemia, unspecified; D69.6 Thrombocytopenia, unspecified; E11.22 Type 2 diabetes mellitus with diabetic chronic kidney disease; E78.5 Hyperlipidemia, unspecified; F32.A Depression, unspecified; F41.9 Anxiety disorder, unspecified; F17.210 Nicotine dependence, cigarettes, uncomplicated; I12.9 Hypertensive chronic kidney disease with stage 1 through stage 4 chronic kidney disease, or unspecified chronic kidney disease; J45.909 Unspecified asthma, uncomplicated; R16.1 Splenomegaly, not elsewhere classified; Z79.899 Other long term (current) drug therapy; Z80.3 Family history of malignant neoplasm of breast; Z80.6 Family history of leukemia; Z82.49 Family history of ischemic heart disease and other diseases of the circulatory system; Z87.442 Personal history of urinary calculi; Z88.0 Allergy status to penicillin; Z88.5 Allergy status to narcotic agent; Z68.22 Body mass index [BMI] 22.0-22.9, adult
CPT/HCPCS: 36415; 74176; 76700; 76942; 80048; 80053; 81001; 82140; 82150; 82570; 82962; 83605; 83690; 84156; 84300; 85007; 85025; 85027; 85610; 85730; 86850; 86900; 86901; 86920; 87086; 87088; 87426; 93005; 96365; 96366; 97110; 97116; 97530; 99291; C9113; G0378; J0696; J1815; J3490

== ENCOUNTER 2021-09-29 09:41 | Inpatient (IN) | payer OTHER ==
[~2021-09-29] VITALS: Ht 162.6 cm; Wt 64.9 kg
[2021-09-29] VITALS (7 sets, daily range): BP systolic 110–144; BP diastolic 57–81
[2021-09-29 11:05] LABS: Potassium 3.2 mmol/L (3.5-5.1)
[2021-09-29 11:08] LABS: Mean Corpuscular Hemoglobin 35.6 pg (28.0-32.0); Mean Corpuscular Hgb Conc. 35.1 g/dL (32.0-36.0); Mean Corpuscular Volume 101.4 fL (80.0-100.0); Red Blood Cells 1.78 10^6/uL (4.0-5.20); White Blood Cell 10.3 10^3/uL (4.4-10.8)
[2021-09-29 11:10] LABS: Red Cell Distribution Width 23.5 % (11.8-14.3)
[2021-09-29 11:12] LABS: Hemoglobin 6.3 g/dL (12.2-16.2)
[2021-09-29 11:14] LABS: Albumin 1.8 g/dL (3.4-5.0); BUN/Creatinine Ratio 11.9; Basophils % (manual) 0 (0.0-2.0); Bilirubin, Total 6.2 mg/dL (0.2-1.0); Blast Cells 0; Calcium 8.8 mg/dL (8.5-10.1); Metamyelocytes % 0; Myelocytes % 0; Promyelocytes % 0; Reactive Lymphocytes 0; Total Protein 7.4 g/dL (6.4-8.2)
[2021-09-29 11:31] LABS: Band Neutrophils % (manual) 3; Eosinophils % (manual) 1 (0-7); Lymphocytes % (manual) 9 (10.0-50.0); Monocytes % (manual) 2 (0-12)
[2021-09-29] MEDS ORDERED: POTASSIUM EFFERVESENT TAB 25 MEQ PO ONE (11:45)
[2021-09-29 12:02] LABS: INR 1.44 (0.9-1.15); Partial Thromboplastin Time 32.5 sec (23.6-33.0)
[2021-09-29 14:24] LABS: Urine Bacteria MOD /hpf (None Seen); Urine Blood 3+ /uL (Negative); Urine Specific Gravity 1.011 (1.001-1.035); Urine WBC 19 /hpf (0 - 5)
[2021-09-29] MEDS ORDERED: NICOTINE 14 MG/24HR TOPICAL PATCH TD ONE (14:45)
[2021-09-29] MEDS ORDERED: POTASSIUM CHL 20 Meq TABLET PO ONE (15:15)
[2021-09-29] MEDS ORDERED: MORPHINE SULFATE INJECTION 2 MG/ML SYRG IV PRN ×3 (15:15→15:45)
[2021-09-29] MEDS ORDERED: NITROGLYCERIN 0.4 MG SL TAB SL PRN ×2 (15:15→15:45)
[2021-09-29] MEDS ORDERED: LACTULOSE 20Gm/30ML SOLN PO ONE (15:45)
[2021-09-29] MEDS ORDERED: METOCLOPRAMIDE HCL 5MG/ml INJ 2ml VIAL IV PRN (15:45)
[2021-09-29] MEDS ORDERED: HYDROcodone-ACET 5/325MG TAB PO PRN (15:45)
[2021-09-29] MEDS ORDERED: DOCUSATE SOD 100 MG CAP PO PRN (15:45)
[2021-09-29] MEDS ORDERED: LORazepam 0.5 MG TAB PO PRN (15:45)
[2021-09-29] MEDS ORDERED: LORazepam 2MG/ML-1ML VIAL IV PRN (15:45)
[2021-09-29] MEDS ORDERED: levoFLOXacin 250MG 50 ML IV ONE (15:45)
[2021-09-29] MEDS ORDERED: IPRATROPIUM BROM 0.5 MG/2.5ML INH SOL NEB ONE (15:45)
[2021-09-29] MEDS ORDERED: ALUM & MAG HYDROX-SIMETH LIQ(MAALOX) 30 ML PO PRN (15:45)
[2021-09-29] MEDS ORDERED: PANTOPRAZOLE 40 MG/10 ML VIAL INJ IV ONE (15:45)
[2021-09-29 16:20] LABS: Hematocrit 18.8 % (36.0-46.0); Mean Corpuscular Hemoglobin 33.4 pg (28.0-32.0); Mean Corpuscular Hgb Conc. 34.1 g/dL (32.0-36.0); Mean Corpuscular Volume 97.8 fL (80.0-100.0); Red Blood Cells 1.92 10^6/uL (4.0-5.20); White Blood Cell 10.1 10^3/uL (4.4-10.8)
[2021-09-29 16:35] LABS: Hemoglobin 6.4 g/dL (12.2-16.2)
[2021-09-29 16:37] LABS: Basophils % (manual) 0 (0.0-2.0); Blast Cells 0; Eosinophils % (manual) 0 (0-7); Metamyelocytes % 0; Myelocytes % 0; Promyelocytes % 0; Reactive Lymphocytes 0
[2021-09-29] MEDS: LACTULOSE 20Gm/30ML SOLN PO SCH ×2 (18:00→21:15)
[2021-09-29] MEDS: IPRATROPIUM BROM 0.5 MG/2.5ML INH SOL NEB SCH ×2 (18:00→21:45)
[2021-09-29 19:02] LABS: Band Neutrophils % (manual) 2; Lymphocytes % (manual) 15 (10.0-50.0); Monocytes % (manual) 9 (0-12)
[2021-09-29] MEDS: PANTOPRAZOLE 40 MG/10 ML VIAL INJ IV SCH (21:15)
[2021-09-29 23:06] LABS: Amphetamine Screen, Urine NEGATIVE (NEGATIVE); Barbiturate Scree,Urine NEGATIVE (NEGATIVE); Benzodiazephine Screen, Urine NEGATIVE (NEGATIVE); Cannabinoid Screen, Urine NEGATIVE (NEGATIVE); Cocaine Screen, Urine NEGATIVE (NEGATIVE); Opiate Scree,Urine NEGATIVE (NEGATIVE); Phencyclidine Screen, Urine NEGATIVE (NEGATIVE)
[2021-09-30] VITALS (7 sets, daily range): BP systolic 121–131; BP diastolic 53–71
[2021-09-30] MEDS: LACTULOSE 20Gm/30ML SOLN PO SCH ×5 (01:35→21:25)
[2021-09-30] MEDS: IPRATROPIUM BROM 0.5 MG/2.5ML INH SOL NEB SCH ×3 (02:14→07:44)
[2021-09-30 05:39] LABS: Basophils # (auto) 0 10 ^3/uL (0-0.2); Eosinophils # (auto) 0.1 10 ^3/uL (0-0.8); Hemoglobin 7.4 g/dL (12.2-16.2); Lymphocytes # (auto) 1.5 10 ^3/uL (0.4-5.4)
[2021-09-30 05:41] LABS: Basophils % (auto) 0.4 % (0.0-2.0); Hematocrit 21.1 % (36.0-46.0); Lymphocytes % (auto) 15.7 % (10.0-50.0); Mean Corpuscular Hemoglobin 33.4 pg (28.0-32.0); Mean Corpuscular Hgb Conc. 35.3 g/dL (32.0-36.0); Mean Corpuscular Volume 94.7 fL (80.0-100.0); Monocytes # (auto) 0.9 10 ^3/uL (0-1.3); Neutrophils # (auto) 7.3 10 ^3/uL (1.6-8.6); Neutrophils % (auto) 73.9 % (37.0-80.0); Nucleated Red Blood Cells % 0.2 %; Red Blood Cells 2.23 10^6/uL (4.0-5.20); White Blood Cell 9.9 10^3/uL (4.4-10.8)
[2021-09-30 05:51] LABS: Albumin 1.6 g/dL (3.4-5.0); Calcium 8.3 mg/dL (8.5-10.1); Magnesium 1.8 mg/dL (1.6-2.6); Potassium 3.6 mmol/L (3.5-5.1)
[2021-09-30 05:55] LABS: INR 1.55 (0.9-1.15); Partial Thromboplastin Time 35.3 sec (23.6-33.0)
[2021-09-30 05:59] LABS: Bilirubin, Total 7.1 mg/dL (0.2-1.0); Phosphorus 3.9 mg/dL (2.5-4.90); Total Protein 6.8 g/dL (6.4-8.2)
[2021-09-30 06:01] LABS: Red Cell Distribution Width 24.4 % (11.8-14.3)
[2021-09-30] MEDS: levoFLOXacin 250MG 50 ML IV SCH (09:11)
[2021-09-30] MEDS: PANTOPRAZOLE 40 MG/10 ML VIAL INJ IV SCH ×2 (09:11→21:25)
[2021-09-30] MEDS ORDERED: METOCLOPRAMIDE HCL 5MG/ml INJ 2ml VIAL IV PRN (10:15)
[2021-09-30] MEDS: rifAXIMin 550 MG TAB PO SCH ×2 (11:01→21:24)
[2021-10-01 05:15] VITALS: BP 96/43
[2021-10-01] MEDS: LACTULOSE 20Gm/30ML SOLN PO SCH (06:00)
[2021-10-01 06:29] LABS: Basophils # (auto) 0 10 ^3/uL (0-0.2); Eosinophils # (auto) 0.2 10 ^3/uL (0-0.8); Hemoglobin 7.3 g/dL (12.2-16.2); Lymphocytes # (auto) 1.4 10 ^3/uL (0.4-5.4); Monocytes # (auto) 0.8 10 ^3/uL (0-1.3); Neutrophils # (auto) 6.3 10 ^3/uL (1.6-8.6); White Blood Cell 8.7 10^3/uL (4.4-10.8)
[2021-10-01 06:32] LABS: Basophils % (auto) 0.4 % (0.0-2.0); Hematocrit 20.6 % (36.0-46.0); Lymphocytes % (auto) 16.3 % (10.0-50.0); Mean Corpuscular Hemoglobin 33.7 pg (28.0-32.0); Mean Corpuscular Hgb Conc. 35.5 g/dL (32.0-36.0); Mean Corpuscular Volume 94.9 fL (80.0-100.0); Monocytes % (auto) 9.1 % (0.0-12.0); Neutrophils % (auto) 72.2 % (37.0-80.0); Red Blood Cells 2.17 10^6/uL (4.0-5.20)
[2021-10-01 06:38] LABS: Red Cell Distribution Width 24.6 % (11.8-14.3)
[2021-10-01 06:55] LABS: Potassium 3.5 mmol/L (3.5-5.1)
[2021-10-01 07:01] LABS: Albumin 1.5 g/dL (3.4-5.0); BUN/Creatinine Ratio 11.5; Bilirubin, Total 5.5 mg/dL (0.2-1.0); Total Protein 6.4 g/dL (6.4-8.2)
[2021-10-01 09:13] VITALS: BP 151/78
[2021-10-01 09:16] VITALS: BP 98/53
[2021-10-01] MEDS: rifAXIMin 550 MG TAB PO SCH (10:00)
[2021-10-01] MEDS: levoFLOXacin 250MG 50 ML IV SCH (10:00)
[2021-10-01] MEDS: PANTOPRAZOLE 40 MG/10 ML VIAL INJ IV SCH (10:00)
[2021-10-01] MEDS ORDERED: CIPR-173 PO (11:33)
[2021-10-01] MEDS ORDERED: RIFA550T PO (11:33)
[2021-10-01] MEDS ORDERED: LACT10SO3 PO (11:33)
[2021-10-01 12:07] VITALS: BP 98/53
== END 2021-10-01 13:36 | disposition home or self-care (01) | DRG 432 ==
LOC: ER 09:41 → TELE 15:12 → TELE-CENTR 17:39 → CENTRAL 10-01 07:17
PROVIDERS: ADMIT Hospitalist; ATTEND Internal Medicine
PROC: 30233N1 Transfusion of Nonautologous Red Blood Cells into Peripheral Vein, Percutaneous Approach (ICD-10-PCS; 2021-09-28)
PROC: 0W9G3ZZ Drainage of Peritoneal Cavity, Percutaneous Approach (ICD-10-PCS; principal; 2021-09-30)
DX: K70.31 Alcoholic cirrhosis of liver with ascites (principal); K76.7 Hepatorenal syndrome; K76.6 Portal hypertension; D68.4 Acquired coagulation factor deficiency; E44.0 Moderate protein-calorie malnutrition; N17.9 Acute kidney failure, unspecified; E87.6 Hypokalemia; D69.6 Thrombocytopenia, unspecified; N18.32 Chronic kidney disease, stage 3b; K29.20 Alcoholic gastritis without bleeding; Z88.0 Allergy status to penicillin; Z88.5 Allergy status to narcotic agent; Z68.25 Body mass index [BMI] 25.0-25.9, adult; D64.9 Anemia, unspecified; E11.22 Type 2 diabetes mellitus with diabetic chronic kidney disease; F17.210 Nicotine dependence, cigarettes, uncomplicated; I12.9 Hypertensive chronic kidney disease with stage 1 through stage 4 chronic kidney disease, or unspecified chronic kidney disease; J45.909 Unspecified asthma, uncomplicated; Z80.3 Family history of malignant neoplasm of breast; Z80.6 Family history of leukemia; Z87.442 Personal history of urinary calculi; F32.A Depression, unspecified; F41.9 Anxiety disorder, unspecified; K72.90 Hepatic failure, unspecified without coma; Z20.822 Contact with and (suspected) exposure to COVID-19
CPT/HCPCS: 36415; 36430; 70450; 71045; 74176; 76942; 80053; 80307; 81001; 82140; 82962; 83036; 83735; 83880; 84100; 84484; 85007; 85025; 85027; 85610; 85730; 86850; 86900; 86901; 86920; 87040; 87086; 87426; 93005; 94640; 96365; 96375; 99291; C9113; G0378

== ENCOUNTER 2021-11-07 17:57 | Inpatient (IN) | payer OTHER ==
[~2021-11-07] VITALS: Ht 165.1 cm; Wt 69.1 kg
[~2021-11-07 17:57] MED LIST changes: +CIPR-173 PO; +RIFA550T PO
[2021-11-07 19:02] LABS: Basophils # (auto) 0.1 10 ^3/uL (0-0.2); Eosinophils # (auto) 0.1 10 ^3/uL (0-0.8)
[2021-11-07 19:05] LABS: Basophils % (auto) 0.8 % (0.0-2.0); Eosinophils % (auto) 1.1 % (0.0-7.0); Hematocrit 14.8 % (36.0-46.0); Lymphocytes # (auto) 1.2 10 ^3/uL (0.4-5.4); Lymphocytes % (auto) 18.3 % (10.0-50.0); Mean Corpuscular Hemoglobin 37.1 pg (28.0-32.0); Mean Corpuscular Hgb Conc. 34.8 g/dL (32.0-36.0); Mean Corpuscular Volume 106.4 fL (80.0-100.0); Monocytes # (auto) 0.5 10 ^3/uL (0-1.3); Monocytes % (auto) 7.8 % (0.0-12.0); Neutrophils # (auto) 4.7 10 ^3/uL (1.6-8.6); Nucleated Red Blood Cells % 0.2 %; Red Blood Cells 1.39 10^6/uL (4.0-5.20); Red Cell Distribution Width 16.3 % (11.8-14.3); White Blood Cell 6.6 10^3/uL (4.4-10.8)
[2021-11-07 19:17] LABS: Hemoglobin 5.2 g/dL (12.2-16.2)
[2021-11-07 19:20] LABS: Albumin 2.3 g/dL (3.4-5.0); Calcium 8.6 mg/dL (8.5-10.1)
[2021-11-07 19:25] LABS: BUN/Creatinine Ratio 9.2; Bilirubin, Total 4.7 mg/dL (0.2-1.0); Total Protein 7.4 g/dL (6.4-8.2)
[2021-11-07 19:32] LABS: Potassium 2.8 mmol/L (3.5-5.1)
[2021-11-07] MEDS ORDERED: POTASSIUM CHL 20MEQ/50ML 50 ML IV ONE ×2 (19:45→20:36)
[2021-11-07] MEDS ORDERED: MAGNESIUM SULFATE 1GM/100ML 100 ML IV SCH (19:45)
[2021-11-07] MEDS ORDERED: POTASSIUM CHL 20 Meq TABLET PO ONE (19:45)
[2021-11-07] MEDS ORDERED: ONDANSETRON HCL 4 MG/2 ML VIAL IV ONE (21:15)
[2021-11-07 21:54] VITALS: BP 131/59
[2021-11-07] MEDS: LACTULOSE 20Gm/30ML SOLN PO SCH (22:00)
[2021-11-07 22:12] VITALS: BP 126/74
[2021-11-08] VITALS (10 sets, daily range): BP systolic 100–126; BP diastolic 44–74
[2021-11-08] MEDS ORDERED: PANT40T PO (02:10)
[2021-11-08] MEDS ORDERED: FUR20T PO (02:10)
[2021-11-08] MEDS ORDERED: METO-517 PO (02:10)
[2021-11-08] MEDS ORDERED: FER325T PO (02:10)
[2021-11-08] MEDS: LACTULOSE 20Gm/30ML SOLN PO SCH ×4 (05:17→21:21)
[2021-11-08] MEDS: ONDANSETRON HCL 4 MG/2 ML VIAL IV PRN ×2 (08:49→21:12)
[2021-11-08 08:58] LABS: Basophils # (auto) 0 10 ^3/uL (0-0.2); Eosinophils # (auto) 0.2 10 ^3/uL (0-0.8); Eosinophils % (auto) 2.1 % (0.0-7.0); Lymphocytes # (auto) 1.7 10 ^3/uL (0.4-5.4)
[2021-11-08 09:02] LABS: Basophils % (auto) 0.2 % (0.0-2.0); Hematocrit 20.8 % (36.0-46.0); Hemoglobin 7.4 g/dL (12.2-16.2); Lymphocytes % (auto) 20.6 % (10.0-50.0); Mean Corpuscular Hemoglobin 33.9 pg (28.0-32.0); Mean Corpuscular Hgb Conc. 35.5 g/dL (32.0-36.0); Mean Corpuscular Volume 95.6 fL (80.0-100.0); Monocytes # (auto) 0.9 10 ^3/uL (0-1.3); Monocytes % (auto) 11.4 % (0.0-12.0); Neutrophils # (auto) 5.3 10 ^3/uL (1.6-8.6); Neutrophils % (auto) 65.7 % (37.0-80.0); Nucleated Red Blood Cells % 0.1 %; Red Blood Cells 2.17 10^6/uL (4.0-5.20); White Blood Cell 8.1 10^3/uL (4.4-10.8)
[2021-11-08 09:42] LABS: Alanine Aminotransferase 22 U/L (13-56); Albumin 2.4 g/dL (3.4-5.0); Alkaline Phosphatase 102 U/L (45-117); Anion Gap 13 (5-15); Aspartate Aminotransferase 58 U/L (15-37); BUN/Creatinine Ratio 9.8; Bilirubin, Total 7.2 mg/dL (0.2-1.0); Blood Urea Nitrogen 38 mg/dL (7-18); Calcium 8.9 mg/dL (8.5-10.1); Carbon Dioxide 21 mmol/L (21-32); Chloride 110 mmol/L (98-107); GFR African American 15 mL/min; GFR Non-African American 13 mL/min; Glucose 123 mg/dL (74-106); Potassium 3.5 mmol/L (3.5-5.1); Sodium 144 mmol/L (136-145); Total Protein 7.3 g/dL (6.4-8.2)
[2021-11-08] MEDS ORDERED: FUROSEMIDE 20 MG TAB PO SCH (10:00)
[2021-11-08] MEDS ORDERED: PANTOPRAZOLE 40 MG TAB PO SCH (10:00)
[2021-11-08] MEDS: POTASSIUM CHL 10 Meq TABLET PO SCH (10:00)
[2021-11-08] MEDS: rifAXIMin 550 MG TAB PO SCH ×3 (10:00→21:22)
[2021-11-08] MEDS ORDERED: SPIRONOLACTONE 25 MG TAB PO SCH (10:00)
[2021-11-08] MEDS: OCTREOTIDE ACETATE 500 MCG in SODIUM CHL 0.9% 99 ML IV SCH ×2 (11:30→21:11)
[2021-11-08] MEDS ORDERED: OCTREOTIDE ACETATE 100 MCG in SODIUM CHL 0.9% 50 ML IV ONE (11:30)
[2021-11-08 13:37] LABS: INR 1.49 (0.9-1.15)
[2021-11-08] MEDS: PANTOPRAZOLE 40 MG/10 ML VIAL INJ IV SCH (21:12)
[2021-11-09] VITALS (11 sets, daily range): BP systolic 112–146; BP diastolic 50–76
[2021-11-09 05:42] LABS: Basophils # (auto) 0.1 10 ^3/uL (0-0.2); Eosinophils # (auto) 0.1 10 ^3/uL (0-0.8); Monocytes # (auto) 0.7 10 ^3/uL (0-1.3)
[2021-11-09 05:44] LABS: Basophils % (auto) 1.3 % (0.0-2.0); Eosinophils % (auto) 1.8 % (0.0-7.0); Hematocrit 18.1 % (36.0-46.0); Lymphocytes # (auto) 1.7 10 ^3/uL (0.4-5.4); Lymphocytes % (auto) 21.6 % (10.0-50.0); Mean Corpuscular Hemoglobin 34.2 pg (28.0-32.0); Mean Corpuscular Hgb Conc. 35.5 g/dL (32.0-36.0); Mean Corpuscular Volume 96.3 fL (80.0-100.0); Monocytes % (auto) 9.3 % (0.0-12.0); Neutrophils # (auto) 5.2 10 ^3/uL (1.6-8.6); Red Blood Cells 1.88 10^6/uL (4.0-5.20); White Blood Cell 7.8 10^3/uL (4.4-10.8)
[2021-11-09] MEDS: LACTULOSE 20Gm/30ML SOLN PO SCH ×3 (05:45→21:34)
[2021-11-09 05:51] LABS: Red Cell Distribution Width 22.8 % (11.8-14.3)
[2021-11-09 05:52] LABS: Hemoglobin 6.4 g/dL (12.2-16.2)
[2021-11-09 06:13] LABS: Potassium 3.8 mmol/L (3.5-5.1)
[2021-11-09 06:26] LABS: BUN/Creatinine Ratio 9.5; Calcium 8.9 mg/dL (8.5-10.1)
[2021-11-09 06:29] LABS: Bilirubin, Total 7.6 mg/dL (0.2-1.0); Total Protein 6.4 g/dL (6.4-8.2)
[2021-11-09] MEDS: OCTREOTIDE ACETATE 500 MCG in SODIUM CHL 0.9% 99 ML IV SCH ×2 (07:32→17:30)
[2021-11-09 08:41] LABS: Hematocrit 17.4 % (36.0-46.0)
[2021-11-09 08:43] LABS: Hemoglobin 6.1 g/dL (12.2-16.2)
[2021-11-09] MEDS: PANTOPRAZOLE 40 MG/10 ML VIAL INJ IV SCH ×2 (10:00→21:34)
[2021-11-09] MEDS: POTASSIUM CHL 10 Meq TABLET PO SCH (10:00)
[2021-11-09] MEDS: rifAXIMin 550 MG TAB PO SCH ×2 (10:00→21:34)
[2021-11-09] MEDS ORDERED: PHYTONADIONE (VIT K)10 MG/ML 1ML VIAL SUBCUT ONE (10:30)
[2021-11-09] MEDS ORDERED: HYDR-4833 PO (10:41)
[2021-11-09] MEDS ORDERED: HYDR1TAB97 PO (10:42)
[2021-11-09] MEDS ORDERED: phytonadione 10 MG in SODIUM CHL 0.9% 50 ML IV ONE (11:45)
[2021-11-09 20:14] LABS: Urine Bacteria NONE SEEN /hpf (None Seen); Urine Blood 3+ /uL (Negative); Urine Specific Gravity 1.013 (1.001-1.035); Urine WBC 84 /hpf (0 - 5)
[2021-11-10 03:13] LABS: Hematocrit 25.8 % (36.0-46.0)
[2021-11-10 05:13] VITALS: BP 127/61
[2021-11-10] MEDS: LACTULOSE 20Gm/30ML SOLN PO SCH ×3 (05:39→22:15)
[2021-11-10 06:35] LABS: Basophils # (auto) 0.1 10 ^3/uL (0-0.2); Basophils % (auto) 1.4 % (0.0-2.0); Eosinophils # (auto) 0.2 10 ^3/uL (0-0.8); Eosinophils % (auto) 2.2 % (0.0-7.0); Hematocrit 24.6 % (36.0-46.0); Hemoglobin 8.7 g/dL (12.2-16.2); Lymphocytes # (auto) 1.3 10 ^3/uL (0.4-5.4); Lymphocytes % (auto) 18.8 % (10.0-50.0); Mean Corpuscular Hemoglobin 33.2 pg (28.0-32.0); Mean Corpuscular Hgb Conc. 35.5 g/dL (32.0-36.0); Mean Corpuscular Volume 93.5 fL (80.0-100.0); Monocytes # (auto) 0.6 10 ^3/uL (0-1.3); Monocytes % (auto) 8.7 % (0.0-12.0); Neutrophils # (auto) 4.8 10 ^3/uL (1.6-8.6); Neutrophils % (auto) 68.9 % (37.0-80.0); Nucleated Red Blood Cells % 0.3 %; Potassium 3.7 mmol/L (3.5-5.1); Red Blood Cells 2.63 10^6/uL (4.0-5.20); Red Cell Distribution Width 19.5 % (11.8-14.3)
[2021-11-10 06:48] LABS: Albumin 2.1 g/dL (3.4-5.0); BUN/Creatinine Ratio 9.1; Calcium 8.7 mg/dL (8.5-10.1)
[2021-11-10 06:51] LABS: Bilirubin, Total 8.2 mg/dL (0.2-1.0); Total Protein 6.4 g/dL (6.4-8.2)
[2021-11-10] MEDS ORDERED: MIDAZOLAM HCL 5 MG/ML-1ML VIAL ONE (08:50)
[2021-11-10] MEDS ORDERED: diphenhdrAMINE HCL 50 MG/1 ML VL ONE (08:50)
[2021-11-10] MEDS ORDERED: LIDOCAINE VISCOUS 2% 15ML UD ONE (08:50)
[2021-11-10] MEDS ORDERED: fentaNYL CITRATE 100 MCG/2 ML VL ONE (08:51)
[2021-11-10] MEDS ORDERED: SODIUM CHLORIDE LOCK 10 ML ONE (08:51)
[2021-11-10] MEDS ORDERED: cefTRIAXone 1GM/50ML D5W 50 ML IV ONE (09:15)
[2021-11-10 09:19] VITALS: BP 137/81
[2021-11-10] MEDS: rifAXIMin 550 MG TAB PO SCH ×2 (10:00→22:15)
[2021-11-10] MEDS: PANTOPRAZOLE 40 MG/10 ML VIAL INJ IV SCH ×2 (11:50→22:15)
[2021-11-10 12:24] VITALS: BP 129/68
[2021-11-10 16:19] VITALS: BP 130/69
[2021-11-10] MEDS: OCTREOTIDE ACETATE 500 MCG in SODIUM CHL 0.9% 99 ML IV SCH (17:06)
[2021-11-10 20:00] VITALS: BP 115/59
[2021-11-10 22:48] VITALS: BP 115/59
[2021-11-11 05:00] VITALS: BP 120/58
[2021-11-11] MEDS: OCTREOTIDE ACETATE 500 MCG in SODIUM CHL 0.9% 99 ML IV SCH (05:21)
[2021-11-11] MEDS: LACTULOSE 20Gm/30ML SOLN PO SCH ×3 (06:00→21:14)
[2021-11-11 06:11] LABS: Basophils # (auto) 0.1 10 ^3/uL (0-0.2); Eosinophils # (auto) 0.1 10 ^3/uL (0-0.8); Eosinophils % (auto) 2.1 % (0.0-7.0); Hematocrit 23.5 % (36.0-46.0); Hemoglobin 8.3 g/dL (12.2-16.2); Lymphocytes # (auto) 1.2 10 ^3/uL (0.4-5.4); Lymphocytes % (auto) 19.7 % (10.0-50.0); Mean Corpuscular Hemoglobin 33.3 pg (28.0-32.0); Mean Corpuscular Hgb Conc. 35.4 g/dL (32.0-36.0); Monocytes # (auto) 0.5 10 ^3/uL (0-1.3); Neutrophils # (auto) 4.3 10 ^3/uL (1.6-8.6); Neutrophils % (auto) 68.2 % (37.0-80.0); Nucleated Red Blood Cells % 0.1 %; Red Cell Distribution Width 19.6 % (11.8-14.3); White Blood Cell 6.3 10^3/uL (4.4-10.8)
[2021-11-11 06:12] LABS: INR 1.53 (0.9-1.15); Partial Thromboplastin Time 40.2 sec (23.6-33.0)
[2021-11-11 06:15] LABS: Albumin 1.9 g/dL (3.4-5.0); BUN/Creatinine Ratio 9.2; Calcium 8.4 mg/dL (8.5-10.1); Potassium 3.8 mmol/L (3.5-5.1)
[2021-11-11 06:18] LABS: Bilirubin, Total 6.8 mg/dL (0.2-1.0); Total Protein 6.2 g/dL (6.4-8.2)
[2021-11-11] MEDS ORDERED: LIDOCAINE VISCOUS 2% 15ML UD ONE (08:16)
[2021-11-11] MEDS ORDERED: SODIUM CHLORIDE LOCK 10 ML ONE (08:17)
[2021-11-11] MEDS ORDERED: diphenhdrAMINE HCL 50 MG/1 ML VL ONE (08:17)
[2021-11-11 08:29] VITALS: BP 133/59
[2021-11-11] MEDS: cefTRIAXone 1GM/50ML D5W 50 ML IV SCH (09:00)
[2021-11-11] MEDS: fentaNYL CITRATE 100 MCG/2 ML VL ONE ×2 (09:20→09:23)
[2021-11-11] MEDS: MIDAZOLAM HCL 5 MG/ML-1ML VIAL ONE ×2 (09:20→09:23)
[2021-11-11] MEDS ORDERED: ALBUMIN 25% 50 ML IV ONE (10:00)
[2021-11-11] MEDS: PANTOPRAZOLE 40 MG TAB PO SCH ×2 (10:00→21:14)
[2021-11-11] MEDS: rifAXIMin 550 MG TAB PO SCH ×2 (10:00→21:14)
[2021-11-11 12:59] VITALS: BP 140/79
[2021-11-11 17:13] VITALS: BP 104/59
[2021-11-11 22:00] VITALS: BP 137/75
[2021-11-12 05:00] VITALS: BP 125/66
[2021-11-12] MEDS: LACTULOSE 20Gm/30ML SOLN PO SCH ×3 (06:02→21:40)
[2021-11-12 07:00] LABS: Basophils # (auto) 0.1 10 ^3/uL (0-0.2); Eosinophils # (auto) 0.2 10 ^3/uL (0-0.8); Eosinophils % (auto) 2.9 % (0.0-7.0); Hematocrit 22.5 % (36.0-46.0); Hemoglobin 7.9 g/dL (12.2-16.2); Lymphocytes # (auto) 1.2 10 ^3/uL (0.4-5.4); Lymphocytes % (auto) 21.7 % (10.0-50.0); Mean Corpuscular Hemoglobin 33.4 pg (28.0-32.0); Mean Corpuscular Hgb Conc. 35.3 g/dL (32.0-36.0); Mean Corpuscular Volume 94.5 fL (80.0-100.0); Monocytes # (auto) 0.4 10 ^3/uL (0-1.3); Monocytes % (auto) 7.5 % (0.0-12.0); Neutrophils # (auto) 3.8 10 ^3/uL (1.6-8.6); Neutrophils % (auto) 66.9 % (37.0-80.0); Nucleated Red Blood Cells % 0.1 %; Red Blood Cells 2.38 10^6/uL (4.0-5.20); White Blood Cell 5.7 10^3/uL (4.4-10.8)
[2021-11-12 07:06] LABS: Calcium 8.9 mg/dL (8.5-10.1); Potassium 3.8 mmol/L (3.5-5.1)
[2021-11-12 07:13] LABS: BUN/Creatinine Ratio 9.6; Bilirubin, Total 6.2 mg/dL (0.2-1.0)
[2021-11-12 08:48] VITALS: BP 114/57
[2021-11-12] MEDS: cefTRIAXone 1GM/50ML D5W 50 ML IV SCH (09:00)
[2021-11-12] MEDS: SODIUM CHLORIDE 0.9% 1,000 ML IV SCH ×2 (09:15→19:42)
[2021-11-12] MEDS: PANTOPRAZOLE 40 MG TAB PO SCH ×2 (10:00→21:40)
[2021-11-12] MEDS: rifAXIMin 550 MG TAB PO SCH ×2 (10:00→21:40)
[2021-11-12 13:08] VITALS: BP 119/55
[2021-11-12 13:30] LABS: Magnesium 1.9 mg/dL (1.6-2.6)
[2021-11-12 13:33] LABS: Phosphorus 5.7 mg/dL (2.5-4.90)
[2021-11-12 16:53] VITALS: BP 109/55
[2021-11-12 22:19] VITALS: BP 113/52
[2021-11-13 04:36] VITALS: BP 103/45
[2021-11-13] MEDS: LACTULOSE 20Gm/30ML SOLN PO SCH ×3 (06:02→21:01)
[2021-11-13 06:47] LABS: Hematocrit 22.2 % (36.0-46.0); Mean Corpuscular Volume 95.3 fL (80.0-100.0); Red Blood Cells 2.33 10^6/uL (4.0-5.20)
[2021-11-13 06:51] LABS: Basophils # (auto) 0.1 10 ^3/uL (0-0.2); Basophils % (auto) 1.4 % (0.0-2.0); Eosinophils # (auto) 0.1 10 ^3/uL (0-0.8); Hemoglobin 7.9 g/dL (12.2-16.2); Lymphocytes # (auto) 1.2 10 ^3/uL (0.4-5.4); Lymphocytes % (auto) 23.8 % (10.0-50.0); Mean Corpuscular Hemoglobin 33.9 pg (28.0-32.0); Mean Corpuscular Hgb Conc. 35.6 g/dL (32.0-36.0); Monocytes # (auto) 0.4 10 ^3/uL (0-1.3); Monocytes % (auto) 6.9 % (0.0-12.0); Neutrophils # (auto) 3.4 10 ^3/uL (1.6-8.6); Neutrophils % (auto) 65.9 % (37.0-80.0); Nucleated Red Blood Cells % 0.2 %; White Blood Cell 5.2 10^3/uL (4.4-10.8)
[2021-11-13] MEDS: cefTRIAXone 1GM/50ML D5W 50 ML IV SCH (09:00)
[2021-11-13] MEDS: PANTOPRAZOLE 40 MG TAB PO SCH ×2 (09:21→21:02)
[2021-11-13] MEDS: rifAXIMin 550 MG TAB PO SCH ×2 (09:21→21:02)
[2021-11-13] MEDS: DOPamine 1600MCG/ML D5W 250 ML IV SCH (10:00)
[2021-11-13] MEDS: SODIUM CHLORIDE 0.9% 1,000 ML IV SCH (11:55)
[2021-11-13 12:30] VITALS: BP 115/53
[2021-11-13] MEDS: ALBUMIN 25% 100 ML IV SCH ×2 (12:50→17:40)
[2021-11-13] MEDS: OCTREOTIDE ACETATE 100 MCG/ML VL SUBCUT SCH ×2 (14:00→21:03)
[2021-11-13 17:00] VITALS: BP 122/55
[2021-11-13 22:09] VITALS: BP 130/53
[2021-11-14] VITALS (8 sets, daily range): BP systolic 125–138; BP diastolic 53–73
[2021-11-14] MEDS: SODIUM CHLORIDE 0.9% 1,000 ML IV SCH ×2 (01:12→06:25)
[2021-11-14] MEDS: ALBUMIN 25% 100 ML IV SCH (02:37)
[2021-11-14] MEDS: ONDANSETRON HCL 4 MG/2 ML VIAL IV PRN ×2 (03:23→17:14)
[2021-11-14 05:33] LABS: Eosinophils # (auto) 0.1 10 ^3/uL (0-0.8); Lymphocytes # (auto) 0.9 10 ^3/uL (0.4-5.4); Nucleated Red Blood Cells % 0.1 %
[2021-11-14 05:35] LABS: Basophils # (auto) 0.1 10 ^3/uL (0-0.2); Basophils % (auto) 1.3 % (0.0-2.0); Eosinophils % (auto) 2.6 % (0.0-7.0); Hematocrit 18.3 % (36.0-46.0); Lymphocytes % (auto) 19.2 % (10.0-50.0); Mean Corpuscular Hemoglobin 33.8 pg (28.0-32.0); Mean Corpuscular Hgb Conc. 36.1 g/dL (32.0-36.0); Mean Corpuscular Volume 93.7 fL (80.0-100.0); Monocytes # (auto) 0.6 10 ^3/uL (0-1.3); Monocytes % (auto) 12.3 % (0.0-12.0); Neutrophils # (auto) 2.9 10 ^3/uL (1.6-8.6); Neutrophils % (auto) 64.6 % (37.0-80.0); Red Blood Cells 1.96 10^6/uL (4.0-5.20); Red Cell Distribution Width 18.9 % (11.8-14.3); White Blood Cell 4.5 10^3/uL (4.4-10.8)
[2021-11-14] MEDS: LACTULOSE 20Gm/30ML SOLN PO SCH ×3 (05:39→21:37)
[2021-11-14 05:40] LABS: Potassium 3.4 mmol/L (3.5-5.1)
[2021-11-14] MEDS: OCTREOTIDE ACETATE 100 MCG/ML VL SUBCUT SCH ×3 (05:40→21:37)
[2021-11-14 05:47] LABS: Albumin 3.1 g/dL (3.4-5.0); BUN/Creatinine Ratio 9.4; Bilirubin, Total 4.8 mg/dL (0.2-1.0); Calcium 8.9 mg/dL (8.5-10.1); Total Protein 6.5 g/dL (6.4-8.2)
[2021-11-14 06:16] LABS: Hemoglobin 6.6 g/dL (12.2-16.2)
[2021-11-14] MEDS: cefTRIAXone 1GM/50ML D5W 50 ML IV SCH (09:00)
[2021-11-14] MEDS: PANTOPRAZOLE 40 MG TAB PO SCH ×2 (09:50→21:38)
[2021-11-14] MEDS: rifAXIMin 550 MG TAB PO SCH ×2 (09:50→21:39)
[2021-11-14] MEDS: DOPamine 1600MCG/ML D5W 250 ML IV SCH (10:10)
[2021-11-14 14:02] LABS: Urine Bacteria FEW /hpf (None Seen); Urine Blood 3+ /uL (Negative); Urine Budding Yeast FEW /hpf (None Seen); Urine Specific Gravity 1.012 (1.001-1.035); Urine WBC 38 /hpf (0 - 5)
[2021-11-14 14:08] LABS: Protein, Urine 179.8 mg/dL (0.0-11.9)
[2021-11-15] MEDS: SODIUM CHLORIDE 0.9% 1,000 ML IV SCH ×2 (03:55→10:42)
[2021-11-15 05:00] VITALS: BP 124/51
[2021-11-15 05:20] LABS: Eosinophils # (auto) 0.1 10 ^3/uL (0-0.8)
[2021-11-15 05:23] LABS: Basophils # (auto) 0.1 10 ^3/uL (0-0.2); Basophils % (auto) 1.4 % (0.0-2.0); Eosinophils % (auto) 2.3 % (0.0-7.0); Hematocrit 23.1 % (36.0-46.0); Hemoglobin 8.3 g/dL (12.2-16.2); Lymphocytes % (auto) 19.4 % (10.0-50.0); Mean Corpuscular Hemoglobin 33.5 pg (28.0-32.0); Mean Corpuscular Hgb Conc. 35.9 g/dL (32.0-36.0); Mean Corpuscular Volume 93.3 fL (80.0-100.0); Monocytes # (auto) 0.5 10 ^3/uL (0-1.3); Monocytes % (auto) 10.7 % (0.0-12.0); Neutrophils # (auto) 3.3 10 ^3/uL (1.6-8.6); Neutrophils % (auto) 66.2 % (37.0-80.0); Nucleated Red Blood Cells % 0.2 %; Red Blood Cells 2.47 10^6/uL (4.0-5.20); Red Cell Distribution Width 18.3 % (11.8-14.3)
[2021-11-15 05:31] LABS: Albumin 2.7 g/dL (3.4-5.0); BUN/Creatinine Ratio 9.5; Calcium 9.1 mg/dL (8.5-10.1); Potassium 3.4 mmol/L (3.5-5.1)
[2021-11-15 05:34] LABS: Bilirubin, Total 5.3 mg/dL (0.2-1.0); Total Protein 6.7 g/dL (6.4-8.2)
[2021-11-15] MEDS: OCTREOTIDE ACETATE 100 MCG/ML VL SUBCUT SCH ×3 (06:00→22:20)
[2021-11-15] MEDS: LACTULOSE 20Gm/30ML SOLN PO SCH ×3 (06:00→22:19)
[2021-11-15 09:00] VITALS: BP 122/55
[2021-11-15] MEDS: cefTRIAXone 1GM/50ML D5W 50 ML IV SCH (10:09)
[2021-11-15] MEDS: DOPamine 1600MCG/ML D5W 250 ML IV SCH (10:10)
[2021-11-15] MEDS: rifAXIMin 550 MG TAB PO SCH ×2 (10:10→22:15)
[2021-11-15] MEDS: PANTOPRAZOLE 40 MG TAB PO SCH ×2 (10:10→22:14)
[2021-11-15 13:00] VITALS: BP 129/57
[2021-11-15 17:00] VITALS: BP 120/57
[2021-11-15] MEDS ORDERED: POTASSIUM CHL 20MEQ/50ML 50 ML IV ONE (19:30)
[2021-11-15 22:00] VITALS: BP 142/65
[2021-11-16 05:00] VITALS: BP 139/60
[2021-11-16] MEDS: SODIUM CHLORIDE 0.9% 1,000 ML IV SCH ×2 (06:01→06:30)
[2021-11-16] MEDS: LACTULOSE 20Gm/30ML SOLN PO SCH ×3 (06:04→22:03)
[2021-11-16] MEDS: OCTREOTIDE ACETATE 100 MCG/ML VL SUBCUT SCH ×3 (06:05→22:04)
[2021-11-16 07:01] LABS: Basophils # (auto) 0.1 10 ^3/uL (0-0.2); Eosinophils # (auto) 0.1 10 ^3/uL (0-0.8); Mean Corpuscular Volume 93.9 fL (80.0-100.0); Monocytes # (auto) 0.5 10 ^3/uL (0-1.3); Neutrophils # (auto) 3.4 10 ^3/uL (1.6-8.6)
[2021-11-16 07:03] LABS: Basophils % (auto) 1.3 % (0.0-2.0); Eosinophils % (auto) 1.5 % (0.0-7.0); Hematocrit 23.3 % (36.0-46.0); Lymphocytes # (auto) 0.9 10 ^3/uL (0.4-5.4); Mean Corpuscular Hemoglobin 32.4 pg (28.0-32.0); Mean Corpuscular Hgb Conc. 34.5 g/dL (32.0-36.0); Monocytes % (auto) 9.9 % (0.0-12.0); Neutrophils % (auto) 68.3 % (37.0-80.0); Nucleated Red Blood Cells % 0.1 %; Red Blood Cells 2.48 10^6/uL (4.0-5.20); Red Cell Distribution Width 18.7 % (11.8-14.3)
[2021-11-16 07:14] LABS: Albumin 2.8 g/dL (3.4-5.0); Calcium 8.9 mg/dL (8.5-10.1); Potassium 3.5 mmol/L (3.5-5.1)
[2021-11-16 07:19] LABS: BUN/Creatinine Ratio 8.7; Bilirubin, Total 4.1 mg/dL (0.2-1.0); Total Protein 6.8 g/dL (6.4-8.2)
[2021-11-16 08:11] VITALS: BP 139/60
[2021-11-16 09:00] VITALS: BP 118/51
[2021-11-16] MEDS: cefTRIAXone 1GM/50ML D5W 50 ML IV SCH (09:30)
[2021-11-16] MEDS: rifAXIMin 550 MG TAB PO SCH ×2 (09:49→22:04)
[2021-11-16] MEDS: PANTOPRAZOLE 40 MG TAB PO SCH ×2 (09:49→22:03)
[2021-11-16] MEDS: ONDANSETRON HCL 4 MG/2 ML VIAL IV PRN (09:52)
[2021-11-16] MEDS: Nepro With Carbsteady ButterPecan 8oz Carton PO SCH ×2 (12:02→17:31)
[2021-11-16 13:00] VITALS: BP 118/55
[2021-11-16 17:00] VITALS: BP 125/60
[2021-11-16] MEDS: DOPamine 1600MCG/ML D5W 250 ML IV SCH (17:43)
[2021-11-16 21:37] VITALS: BP 130/61
[2021-11-17 06:03] LABS: Basophils # (auto) 0 10 ^3/uL (0-0.2); Eosinophils # (auto) 0.1 10 ^3/uL (0-0.8); Lymphocytes # (auto) 0.9 10 ^3/uL (0.4-5.4); Monocytes # (auto) 0.4 10 ^3/uL (0-1.3)
[2021-11-17] MEDS: LACTULOSE 20Gm/30ML SOLN PO SCH ×3 (06:05→22:39)
[2021-11-17] MEDS: OCTREOTIDE ACETATE 100 MCG/ML VL SUBCUT SCH ×3 (06:05→22:49)
[2021-11-17 06:14] LABS: Basophils % (auto) 1.1 % (0.0-2.0); Eosinophils % (auto) 1.7 % (0.0-7.0); Hematocrit 19.9 % (36.0-46.0); Hemoglobin 7.1 g/dL (12.2-16.2); Lymphocytes % (auto) 21.1 % (10.0-50.0); Mean Corpuscular Hemoglobin 33.2 pg (28.0-32.0); Mean Corpuscular Hgb Conc. 35.6 g/dL (32.0-36.0); Mean Corpuscular Volume 93.4 fL (80.0-100.0); Monocytes % (auto) 9.9 % (0.0-12.0); Neutrophils # (auto) 2.9 10 ^3/uL (1.6-8.6); Neutrophils % (auto) 66.2 % (37.0-80.0); Nucleated Red Blood Cells % 0.1 %; Red Blood Cells 2.14 10^6/uL (4.0-5.20); Red Cell Distribution Width 18.9 % (11.8-14.3); White Blood Cell 4.5 10^3/uL (4.4-10.8)
[2021-11-17 06:21] LABS: Albumin 2.3 g/dL (3.4-5.0); Calcium 8.7 mg/dL (8.5-10.1); Potassium 3.4 mmol/L (3.5-5.1)
[2021-11-17 06:23] LABS: BUN/Creatinine Ratio 8.6
[2021-11-17 06:26] LABS: Bilirubin, Total 4.1 mg/dL (0.2-1.0); Total Protein 6.1 g/dL (6.4-8.2)
[2021-11-17] MEDS: Nepro With Carbsteady ButterPecan 8oz Carton PO SCH ×3 (08:00→18:00)
[2021-11-17 08:15] VITALS: BP 153/67
[2021-11-17] MEDS: cefTRIAXone 1GM/50ML D5W 50 ML IV SCH (09:22)
[2021-11-17] MEDS: DOPamine 1600MCG/ML D5W 250 ML IV SCH (09:23)
[2021-11-17] MEDS: rifAXIMin 550 MG TAB PO SCH ×2 (09:23→22:39)
[2021-11-17] MEDS: PANTOPRAZOLE 40 MG TAB PO SCH ×2 (09:23→22:39)
[2021-11-17 09:40] VITALS: BP 153/67
[2021-11-17 14:50] VITALS: BP 124/50
[2021-11-17 16:44] VITALS: BP 106/46
[2021-11-18] VITALS (8 sets, daily range): BP systolic 107–131; BP diastolic 44–65
[2021-11-18] MEDS: LACTULOSE 20Gm/30ML SOLN PO SCH ×4 (07:02→22:00)
[2021-11-18] MEDS: OCTREOTIDE ACETATE 100 MCG/ML VL SUBCUT SCH (07:03)
[2021-11-18 07:28] LABS: Basophils # (auto) 0.1 10 ^3/uL (0-0.2); Basophils % (auto) 1.7 % (0.0-2.0); Eosinophils # (auto) 0.1 10 ^3/uL (0-0.8); Lymphocytes # (auto) 1.1 10 ^3/uL (0.4-5.4); Monocytes # (auto) 0.5 10 ^3/uL (0-1.3)
[2021-11-18 07:30] LABS: Eosinophils % (auto) 1.8 % (0.0-7.0); Hematocrit 18.9 % (36.0-46.0); Lymphocytes % (auto) 25.4 % (10.0-50.0); Mean Corpuscular Hgb Conc. 35.1 g/dL (32.0-36.0); Monocytes % (auto) 11.4 % (0.0-12.0); Neutrophils # (auto) 2.6 10 ^3/uL (1.6-8.6); Neutrophils % (auto) 59.7 % (37.0-80.0); Red Blood Cells 2.01 10^6/uL (4.0-5.20); Red Cell Distribution Width 19.3 % (11.8-14.3); White Blood Cell 4.4 10^3/uL (4.4-10.8)
[2021-11-18 07:45] LABS: Albumin 2.4 g/dL (3.4-5.0); Potassium 3.1 mmol/L (3.5-5.1)
[2021-11-18 07:47] LABS: BUN/Creatinine Ratio 8.2
[2021-11-18 07:49] LABS: Bilirubin, Total 3.9 mg/dL (0.2-1.0); Total Protein 6.2 g/dL (6.4-8.2)
[2021-11-18] MEDS: Nepro With Carbsteady ButterPecan 8oz Carton PO SCH ×3 (08:00→18:00)
[2021-11-18 08:01] LABS: Hemoglobin 6.6 g/dL (12.2-16.2)
[2021-11-18] MEDS: cefTRIAXone 1GM/50ML D5W 50 ML IV SCH (08:49)
[2021-11-18] MEDS ORDERED: POTASSIUM CHL 20 Meq TABLET PO ONE ×2 (09:00→09:45)
[2021-11-18] MEDS: PANTOPRAZOLE 40 MG TAB PO SCH ×2 (10:14→21:36)
[2021-11-18] MEDS: rifAXIMin 550 MG TAB PO SCH ×2 (10:14→21:36)
[2021-11-19 01:47] VITALS: BP 120/58
[2021-11-19 05:00] VITALS: BP 135/66
[2021-11-19] MEDS: LACTULOSE 20Gm/30ML SOLN PO SCH ×3 (05:35→21:27)
[2021-11-19] MEDS: Nepro With Carbsteady ButterPecan 8oz Carton PO SCH ×3 (08:00→17:42)
[2021-11-19 09:00] VITALS: BP 129/51
[2021-11-19] MEDS: cefTRIAXone 1GM/50ML D5W 50 ML IV SCH (09:00)
[2021-11-19 09:04] LABS: Basophils # (auto) 0.1 10 ^3/uL (0-0.2); Eosinophils # (auto) 0.1 10 ^3/uL (0-0.8); Hemoglobin 7.9 g/dL (12.2-16.2); Monocytes # (auto) 0.5 10 ^3/uL (0-1.3); Nucleated Red Blood Cells % 0.1 %
[2021-11-19 09:08] LABS: Basophils % (auto) 1.5 % (0.0-2.0); Hematocrit 22.2 % (36.0-46.0); Lymphocytes # (auto) 1.1 10 ^3/uL (0.4-5.4); Lymphocytes % (auto) 23.5 % (10.0-50.0); Mean Corpuscular Hgb Conc. 35.7 g/dL (32.0-36.0); Mean Corpuscular Volume 92.3 fL (80.0-100.0); Monocytes % (auto) 10.9 % (0.0-12.0); Neutrophils # (auto) 2.8 10 ^3/uL (1.6-8.6); Neutrophils % (auto) 62.1 % (37.0-80.0); Red Blood Cells 2.41 10^6/uL (4.0-5.20); Red Cell Distribution Width 18.3 % (11.8-14.3); White Blood Cell 4.5 10^3/uL (4.4-10.8)
[2021-11-19 09:35] LABS: Potassium 3.4 mmol/L (3.5-5.1)
[2021-11-19 09:43] LABS: Albumin 2.3 g/dL (3.4-5.0); BUN/Creatinine Ratio 7.5; Bilirubin, Total 4.4 mg/dL (0.2-1.0); Calcium 8.4 mg/dL (8.5-10.1); Total Protein 6.5 g/dL (6.4-8.2)
[2021-11-19] MEDS ORDERED: SODIUM BICARBONATE 650 MG TAB PO ONE (10:00)
[2021-11-19] MEDS ORDERED: POTASSIUM CHL 20 Meq TABLET PO ONE (10:15)
[2021-11-19] MEDS: rifAXIMin 550 MG TAB PO SCH ×2 (10:21→21:27)
[2021-11-19] MEDS: PANTOPRAZOLE 40 MG TAB PO SCH ×2 (10:21→21:27)
[2021-11-19 13:00] VITALS: BP 116/57
[2021-11-19] MEDS: SODIUM BICARBONATE 650 MG TAB PO SCH ×2 (13:42→21:27)
[2021-11-19 17:00] VITALS: BP 112/50
[2021-11-19 22:00] VITALS: BP 114/57
[2021-11-20 05:00] VITALS: BP 122/63
[2021-11-20 05:52] LABS: Eosinophils # (auto) 0.1 10 ^3/uL (0-0.8); Hemoglobin 7.7 g/dL (12.2-16.2); Lymphocytes # (auto) 1.1 10 ^3/uL (0.4-5.4); Monocytes # (auto) 0.4 10 ^3/uL (0-1.3)
[2021-11-20 05:56] LABS: Basophils # (auto) 0 10 ^3/uL (0-0.2); Basophils % (auto) 1.1 % (0.0-2.0); Eosinophils % (auto) 1.7 % (0.0-7.0); Hematocrit 21.9 % (36.0-46.0); Lymphocytes % (auto) 27.9 % (10.0-50.0); Mean Corpuscular Hemoglobin 32.4 pg (28.0-32.0); Mean Corpuscular Hgb Conc. 35.2 g/dL (32.0-36.0); Mean Corpuscular Volume 91.8 fL (80.0-100.0); Monocytes % (auto) 9.4 % (0.0-12.0); Neutrophils # (auto) 2.5 10 ^3/uL (1.6-8.6); Neutrophils % (auto) 59.9 % (37.0-80.0); Nucleated Red Blood Cells % 0.2 %; Red Blood Cells 2.39 10^6/uL (4.0-5.20); Red Cell Distribution Width 19.7 % (11.8-14.3); White Blood Cell 4.1 10^3/uL (4.4-10.8)
[2021-11-20 06:12] LABS: Albumin 2.2 g/dL (3.4-5.0); BUN/Creatinine Ratio 7.8; Calcium 8.9 mg/dL (8.5-10.1); Potassium 3.7 mmol/L (3.5-5.1)
[2021-11-20 06:15] LABS: Bilirubin, Total 4.3 mg/dL (0.2-1.0); Total Protein 6.1 g/dL (6.4-8.2)
[2021-11-20] MEDS: SODIUM BICARBONATE 650 MG TAB PO SCH ×3 (06:28→21:15)
[2021-11-20] MEDS: LACTULOSE 20Gm/30ML SOLN PO SCH ×3 (06:28→21:14)
[2021-11-20] MEDS: Nepro With Carbsteady ButterPecan 8oz Carton PO SCH ×3 (08:00→16:46)
[2021-11-20] MEDS ORDERED: LIDOCAINE VISCOUS 2% 15ML UD ONE (08:51)
[2021-11-20] MEDS ORDERED: MIDAZOLAM HCL 5 MG/ML-1ML VIAL ONE (08:51)
[2021-11-20] MEDS ORDERED: SODIUM CHLORIDE LOCK 10 ML ONE (08:51)
[2021-11-20] MEDS ORDERED: fentaNYL CITRATE 100 MCG/2 ML VL ONE (08:52)
[2021-11-20] MEDS ORDERED: diphenhdrAMINE HCL 50 MG/1 ML VL ONE (08:52)
[2021-11-20 09:00] VITALS: BP 131/55
[2021-11-20] MEDS: cefTRIAXone 1GM/50ML D5W 50 ML IV SCH (12:30)
[2021-11-20 13:00] VITALS: BP 112/60
[2021-11-20] MEDS: PANTOPRAZOLE 40 MG TAB PO SCH ×2 (14:30→21:15)
[2021-11-20] MEDS: rifAXIMin 550 MG TAB PO SCH ×2 (14:30→21:15)
[2021-11-20 17:00] VITALS: BP 126/57
[2021-11-20 22:00] VITALS: BP 116/60
[2021-11-21 05:42] LABS: Potassium 3.6 mmol/L (3.5-5.1)
[2021-11-21 05:49] LABS: Albumin 2.5 g/dL (3.4-5.0); BUN/Creatinine Ratio 8.5; Bilirubin, Total 4.9 mg/dL (0.2-1.0); Calcium 8.9 mg/dL (8.5-10.1)
[2021-11-21] MEDS: LACTULOSE 20Gm/30ML SOLN PO SCH ×3 (06:00→21:21)
[2021-11-21] MEDS: SODIUM BICARBONATE 650 MG TAB PO SCH ×3 (06:33→21:21)
[2021-11-21 09:00] VITALS: BP 115/55
[2021-11-21] MEDS: Nepro With Carbsteady ButterPecan 8oz Carton PO SCH ×3 (09:25→18:10)
[2021-11-21] MEDS: cefTRIAXone 1GM/50ML D5W 50 ML IV SCH (09:25)
[2021-11-21] MEDS: PANTOPRAZOLE 40 MG TAB PO SCH ×2 (09:26→21:21)
[2021-11-21] MEDS: rifAXIMin 550 MG TAB PO SCH ×2 (09:26→21:21)
[2021-11-21 13:00] VITALS: BP 96/45
[2021-11-21 17:00] VITALS: BP 109/53
[2021-11-21 22:00] VITALS: BP 120/73
[2021-11-22] VITALS (7 sets, daily range): BP systolic 106–133; BP diastolic 39–54
[2021-11-22 05:30] LABS: Basophils # (auto) 0.1 10 ^3/uL (0-0.2); Eosinophils # (auto) 0.1 10 ^3/uL (0-0.8); Lymphocytes # (auto) 0.7 10 ^3/uL (0.4-5.4); Nucleated Red Blood Cells % 0.1 %
[2021-11-22 05:32] LABS: Basophils % (auto) 1.5 % (0.0-2.0); Eosinophils % (auto) 2.3 % (0.0-7.0); Hematocrit 19.7 % (36.0-46.0); Lymphocytes % (auto) 17.8 % (10.0-50.0); Mean Corpuscular Hemoglobin 32.3 pg (28.0-32.0); Mean Corpuscular Hgb Conc. 35.3 g/dL (32.0-36.0); Mean Corpuscular Volume 91.4 fL (80.0-100.0); Monocytes # (auto) 0.3 10 ^3/uL (0-1.3); Monocytes % (auto) 8.1 % (0.0-12.0); Neutrophils # (auto) 2.7 10 ^3/uL (1.6-8.6); Neutrophils % (auto) 70.3 % (37.0-80.0); Red Blood Cells 2.15 10^6/uL (4.0-5.20); Red Cell Distribution Width 19.4 % (11.8-14.3); White Blood Cell 3.8 10^3/uL (4.4-10.8)
[2021-11-22 05:35] LABS: Potassium 3.6 mmol/L (3.5-5.1)
[2021-11-22 05:42] LABS: Albumin 2.2 g/dL (3.4-5.0); BUN/Creatinine Ratio 9.2; Bilirubin, Total 3.5 mg/dL (0.2-1.0); Calcium 8.7 mg/dL (8.5-10.1); Magnesium 2.1 mg/dL (1.6-2.6); Total Protein 6.1 g/dL (6.4-8.2)
[2021-11-22 05:54] LABS: INR 1.69 (0.9-1.15)
[2021-11-22 06:00] LABS: Hemoglobin 6.9 g/dL (12.2-16.2)
[2021-11-22] MEDS: LACTULOSE 20Gm/30ML SOLN PO SCH ×3 (06:00→22:10)
[2021-11-22] MEDS: SODIUM BICARBONATE 650 MG TAB PO SCH ×3 (07:00→22:10)
[2021-11-22] MEDS: Nepro With Carbsteady ButterPecan 8oz Carton PO SCH ×3 (08:00→17:42)
[2021-11-22] MEDS: PANTOPRAZOLE 40 MG TAB PO SCH ×2 (09:59→22:10)
[2021-11-22] MEDS: cefTRIAXone 1GM/50ML D5W 50 ML IV SCH (09:59)
[2021-11-22] MEDS: rifAXIMin 550 MG TAB PO SCH ×2 (09:59→22:10)
[2021-11-23 05:00] VITALS: BP 112/87
[2021-11-23] MEDS: SODIUM BICARBONATE 650 MG TAB PO SCH (05:32)
[2021-11-23] MEDS: LACTULOSE 20Gm/30ML SOLN PO SCH (05:32)
[2021-11-23 07:49] LABS: Basophils # (auto) 0.1 10 ^3/uL (0-0.2); Basophils % (auto) 1.4 % (0.0-2.0); Eosinophils # (auto) 0 10 ^3/uL (0-0.8); Eosinophils % (auto) 1.3 % (0.0-7.0); Hematocrit 23.2 % (36.0-46.0); Hemoglobin 8.1 g/dL (12.2-16.2); Lymphocytes % (auto) 25.1 % (10.0-50.0); Mean Corpuscular Hgb Conc. 35.1 g/dL (32.0-36.0); Mean Corpuscular Volume 88.5 fL (80.0-100.0); Monocytes # (auto) 0.5 10 ^3/uL (0-1.3); Monocytes % (auto) 11.6 % (0.0-12.0); Neutrophils # (auto) 2.4 10 ^3/uL (1.6-8.6); Neutrophils % (auto) 60.6 % (37.0-80.0); Nucleated Red Blood Cells % 0.6 %; Red Blood Cells 2.62 10^6/uL (4.0-5.20); White Blood Cell 3.9 10^3/uL (4.4-10.8)
[2021-11-23 07:52] LABS: Red Cell Distribution Width 21.9 % (11.8-14.3)
[2021-11-23] MEDS: Nepro With Carbsteady ButterPecan 8oz Carton PO SCH ×2 (08:00→12:02)
[2021-11-23 08:07] LABS: BUN/Creatinine Ratio 9.5; Calcium 9.1 mg/dL (8.5-10.1); Magnesium 1.5 mg/dL (1.6-2.6); Potassium 3.4 mmol/L (3.5-5.1)
[2021-11-23 08:28] LABS: INR 1.78 (0.9-1.15)
[2021-11-23] MEDS ORDERED: POTASSIUM CHL 20 Meq TABLET PO ONE (08:30)
[2021-11-23] MEDS ORDERED: PANT40TA2 PO (08:37)
[2021-11-23] MEDS ORDERED: LEVO250T69 PO (08:37)
[2021-11-23] MEDS ORDERED: LACT10SO3 PO (08:37)
[2021-11-23 09:00] VITALS: BP 131/63
[2021-11-23] MEDS ORDERED: levoFLOXacin 250MG 50 ML IV SCH (10:00)
[2021-11-23] MEDS: PANTOPRAZOLE 40 MG TAB PO SCH (10:00)
[2021-11-23] MEDS: rifAXIMin 550 MG TAB PO SCH (10:00)
[2021-11-23 13:00] VITALS: BP 134/66
== END 2021-11-23 13:00 | disposition home or self-care (01) | DRG 432 ==
LOC: ER 17:57 → OVERFLOW 21:37 → CENTRAL 22:21 → TELE-CENTR 11-11 19:18 → CENTRAL 11-11 19:55
PROVIDERS: ADMIT Nurse Practitioner; ATTEND Internal Medicine
PROC: 30233N1 Transfusion of Nonautologous Red Blood Cells into Peripheral Vein, Percutaneous Approach (ICD-10-PCS; principal; 2021-11-07)
PROC: 0W9G3ZZ Drainage of Peritoneal Cavity, Percutaneous Approach (ICD-10-PCS; 2021-11-09)
PROC: 06L38CZ Occlusion of Esophageal Vein with Extraluminal Device, Via Natural or Artificial Opening Endoscopic (ICD-10-PCS; 2021-11-11)
PROC: 0DJ08ZZ Inspection of Upper Intestinal Tract, Via Natural or Artificial Opening Endoscopic (ICD-10-PCS; 2021-11-20)
DX: K70.31 Alcoholic cirrhosis of liver with ascites (principal); K76.7 Hepatorenal syndrome; N17.0 Acute kidney failure with tubular necrosis; I85.11 Secondary esophageal varices with bleeding; N39.0 Urinary tract infection, site not specified; D61.818 Other pancytopenia; N18.4 Chronic kidney disease, stage 4 (severe); J90 Pleural effusion, not elsewhere classified; E44.0 Moderate protein-calorie malnutrition; B18.1 Chronic viral hepatitis B without delta-agent; K76.6 Portal hypertension; D62 Acute posthemorrhagic anemia; K72.90 Hepatic failure, unspecified without coma; Z20.822 Contact with and (suspected) exposure to COVID-19; E87.8 Other disorders of electrolyte and fluid balance, not elsewhere classified; E87.6 Hypokalemia; F17.210 Nicotine dependence, cigarettes, uncomplicated; E11.22 Type 2 diabetes mellitus with diabetic chronic kidney disease; F32.A Depression, unspecified; F41.9 Anxiety disorder, unspecified; I13.10 Hypertensive heart and chronic kidney disease without heart failure, with stage 1 through stage 4 chronic kidney disease, or unspecified chronic kidney disease; R31.9 Hematuria, unspecified; R80.9 Proteinuria, unspecified; D69.6 Thrombocytopenia, unspecified; K31.89 Other diseases of stomach and duodenum; Z68.25 Body mass index [BMI] 25.0-25.9, adult; Z80.3 Family history of malignant neoplasm of breast; Z80.6 Family history of leukemia; Z82.49 Family history of ischemic heart disease and other diseases of the circulatory system; Z87.442 Personal history of urinary calculi; Z88.0 Allergy status to penicillin
CPT/HCPCS: 36415; 74176; 76775; 76942; 80048; 80053; 81001; 82140; 82150; 82570; 82595; 83690; 83735; 84100; 84156; 84300; 85014; 85018; 85025; 85610; 85730; 86160; 86850; 86900; 86901; 86920; 87426; 93005; 96365; 96375; 97163; C9113; G0378; J0696; J2250; J2405; J3430; P9047

== ENCOUNTER 2021-12-01 14:35 | Inpatient (IN) | payer OTHER ==
[~2021-12-01] VITALS: Ht 162.6 cm; Wt 63.7 kg
[2021-12-01 16:10] LABS: Eosinophils # (auto) 0 10 ^3/uL (0-0.8); Mean Corpuscular Hemoglobin 32.3 pg (28.0-32.0); Monocytes # (auto) 0.4 10 ^3/uL (0-1.3); Neutrophils # (auto) 1.9 10 ^3/uL (1.6-8.6); Nucleated Red Blood Cells % 0.1 %
[2021-12-01 16:13] LABS: Basophils # (auto) 0 10 ^3/uL (0-0.2); Basophils % (auto) 0.9 % (0.0-2.0); Eosinophils % (auto) 1.6 % (0.0-7.0); Lymphocytes # (auto) 0.6 10 ^3/uL (0.4-5.4); Lymphocytes % (auto) 21.3 % (10.0-50.0); Mean Corpuscular Hgb Conc. 35.8 g/dL (32.0-36.0); Mean Corpuscular Volume 90.1 fL (80.0-100.0); Neutrophils % (auto) 63.2 % (37.0-80.0)
[2021-12-01 16:15] LABS: Red Cell Distribution Width 25.1 % (11.8-14.3)
[2021-12-01 16:17] LABS: Hemoglobin 6.8 g/dL (12.2-16.2)
[2021-12-01 16:23] LABS: INR 1.59 (0.9-1.15)
[2021-12-01 17:02] LABS: Chloride 108 mmol/L (98-107); Potassium 3.2 mmol/L (3.5-5.1); Sodium 137 mmol/L (136-145)
[2021-12-01 17:03] LABS: Alkaline Phosphatase 114 U/L (45-117); Anion Gap 10 (5-15); BUN/Creatinine Ratio 9.6; Blood Urea Nitrogen 50 mg/dL (7-18); Carbon Dioxide 19 mmol/L (21-32); GFR African American 11 mL/min; GFR Non-African American 9 mL/min; Glucose 99 mg/dL (74-106)
[2021-12-01 17:04] LABS: Alanine Aminotransferase 54 U/L (13-56); Albumin 2.6 g/dL (3.4-5.0); Aspartate Aminotransferase 212 U/L (15-37); Bilirubin, Total 3.8 mg/dL (0.2-1.0); Calcium 8.4 mg/dL (8.5-10.1); Total Protein 7.5 g/dL (6.4-8.2)
[2021-12-01] MEDS ORDERED: AZITHROMYCIN 500MG/ 250ML 250 ML IV ONE (21:15)
[2021-12-01] MEDS: PANTOPRAZOLE 40 MG/10 ML VIAL INJ IV ONE ×2 (22:30→23:15)
[2021-12-01] MEDS ORDERED: NITROGLYCERIN 0.4 MG SL TAB SL PRN (22:30)
[2021-12-01] MEDS: cefTRIAXone 1GM/50ML D5W 50 ML IV ONE ×2 (22:30→23:15)
[2021-12-01] MEDS ORDERED: ONDANSETRON HCL 4 MG/2 ML VIAL IV PRN (22:30)
[2021-12-02] VITALS (14 sets, daily range): BP systolic 93–130; BP diastolic 38–59
[2021-12-02 09:39] LABS: Albumin 2.3 g/dL (3.4-5.0); Calcium 8.3 mg/dL (8.5-10.1); Potassium 3.2 mmol/L (3.5-5.1)
[2021-12-02 09:44] LABS: BUN/Creatinine Ratio 10.2; Bilirubin, Total 3.9 mg/dL (0.2-1.0); Total Protein 6.4 g/dL (6.4-8.2)
[2021-12-02] MEDS: AZITHROMYCIN 500MG/ 250ML 250 ML IV SCH (09:44)
[2021-12-02] MEDS: PANTOPRAZOLE 40 MG/10 ML VIAL INJ IV SCH (09:44)
[2021-12-02] MEDS: ZINC SULFATE 220mg CAP or TAB PO SCH (09:46)
[2021-12-02] MEDS: FUROSEMIDE 40 MG TAB PO SCH (09:46)
[2021-12-02 09:55] LABS: Mean Corpuscular Hemoglobin 32.2 pg (28.0-32.0); Mean Corpuscular Volume 89.3 fL (80.0-100.0); Red Blood Cells 2.02 10^6/uL (4.0-5.20); White Blood Cell 2.6 10^3/uL (4.4-10.8)
[2021-12-02 09:59] LABS: Red Cell Distribution Width 23.3 % (11.8-14.3)
[2021-12-02] MEDS ORDERED: ASCORBIC ACID 500 MG TAB PO SCH (10:00)
[2021-12-02] MEDS ORDERED: LACTULOSE 20Gm/30ML SOLN PO SCH (10:00)
[2021-12-02] MEDS ORDERED: ALBUMIN 25% 100 ML IV SCH (10:00)
[2021-12-02 10:05] LABS: Hemoglobin 6.5 g/dL (12.2-16.2)
[2021-12-02 10:06] LABS: Basophils % (manual) 0 (0.0-2.0); Blast Cells 0; Metamyelocytes % 0; Myelocytes % 0; Promyelocytes % 0; Reactive Lymphocytes 0
[2021-12-02] MEDS: rifAXIMin 550 MG TAB PO SCH ×2 (10:06→22:17)
[2021-12-02 12:52] LABS: Band Neutrophils % (manual) 14; Eosinophils % (manual) 1 (0-7); Lymphocytes % (manual) 26 (10.0-50.0); Monocytes % (manual) 9 (0-12)
[2021-12-02 19:28] LABS: Albumin 2.6 g/dL (3.4-5.0); Calcium 8.4 mg/dL (8.5-10.1); Potassium 3.3 mmol/L (3.5-5.1)
[2021-12-02 19:32] LABS: BUN/Creatinine Ratio 9.8; Bilirubin, Total 4.1 mg/dL (0.2-1.0); Total Protein 6.7 g/dL (6.4-8.2)
[2021-12-02] MEDS ORDERED: EPOETIN ALFA-EPBX 10,000 UNIT/1ML VIAL SC ONE (21:15)
[2021-12-02] MEDS: SUCRALFATE 1 GM/10 ML ORAL SUSP PO SCH (22:15)
[2021-12-02] MEDS: LACTULOSE 20Gm/30ML SOLN PO SCH (22:15)
[2021-12-03 05:00] VITALS: BP 125/60
[2021-12-03] MEDS: SUCRALFATE 1 GM/10 ML ORAL SUSP PO SCH ×2 (07:00→10:56)
[2021-12-03 07:39] LABS: Potassium 3.2 mmol/L (3.5-5.1)
[2021-12-03 07:44] LABS: Albumin 2.3 g/dL (3.4-5.0); BUN/Creatinine Ratio 9.5; Bilirubin, Total 3.9 mg/dL (0.2-1.0); Calcium 8.1 mg/dL (8.5-10.1); Total Protein 6.4 g/dL (6.4-8.2)
[2021-12-03 08:13] LABS: Hematocrit 20.6 % (36.0-46.0); Hemoglobin 7.3 g/dL (12.2-16.2); Mean Corpuscular Hgb Conc. 35.7 g/dL (32.0-36.0); Mean Corpuscular Volume 89.5 fL (80.0-100.0); White Blood Cell 2.4 10^3/uL (4.4-10.8)
[2021-12-03 08:24] LABS: Red Cell Distribution Width 20.9 % (11.8-14.3)
[2021-12-03 08:26] LABS: Basophils % (manual) 0 (0.0-2.0); Blast Cells 0; Eosinophils % (manual) 0 (0-7); Metamyelocytes % 0; Myelocytes % 0; Promyelocytes % 0; Reactive Lymphocytes 0
[2021-12-03 08:31] VITALS: BP 117/53
[2021-12-03] MEDS ORDERED: POTASSIUM EFFERVESENT TAB 25 MEQ PO ONE (09:00)
[2021-12-03] MEDS: AZITHROMYCIN 500MG/ 250ML 250 ML IV SCH (09:36)
[2021-12-03] MEDS: LACTULOSE 20Gm/30ML SOLN PO SCH (09:36)
[2021-12-03] MEDS: PANTOPRAZOLE 40 MG/10 ML VIAL INJ IV SCH (09:36)
[2021-12-03] MEDS: FUROSEMIDE 40 MG TAB PO SCH (09:37)
[2021-12-03] MEDS: rifAXIMin 550 MG TAB PO SCH (09:37)
[2021-12-03] MEDS: ZINC SULFATE 220mg CAP or TAB PO SCH (09:37)
[2021-12-03] MEDS ORDERED: SUCR1TAB22 OR (12:14)
[2021-12-03 12:18] LABS: Band Neutrophils % (manual) 5; Lymphocytes % (manual) 37 (10.0-50.0); Monocytes % (manual) 12 (0-12)
[2021-12-03 12:46] VITALS: BP 112/53
[2021-12-03 13:50] VITALS: BP 112/53
[2021-12-03 17:00] VITALS: BP 121/54
== END 2021-12-03 17:00 | disposition home or self-care (01) | DRG 177 ==
LOC: ER 14:35 → TELE 22:27 → TELE-EAST 12-02 02:30
PROVIDERS: ADMIT Nurse Practitioner; ATTEND Internal Medicine
PROC: 30233N1 Transfusion of Nonautologous Red Blood Cells into Peripheral Vein, Percutaneous Approach (ICD-10-PCS; principal; 2021-12-02)
DX: U07.1 COVID-19 (principal); N18.6 End stage renal disease; N17.0 Acute kidney failure with tubular necrosis; D68.9 Coagulation defect, unspecified; I85.10 Secondary esophageal varices without bleeding; K76.6 Portal hypertension; I12.0 Hypertensive chronic kidney disease with stage 5 chronic kidney disease or end stage renal disease; E44.0 Moderate protein-calorie malnutrition; D50.0 Iron deficiency anemia secondary to blood loss (chronic); D69.6 Thrombocytopenia, unspecified; K31.89 Other diseases of stomach and duodenum; K70.31 Alcoholic cirrhosis of liver with ascites; E11.22 Type 2 diabetes mellitus with diabetic chronic kidney disease; F17.210 Nicotine dependence, cigarettes, uncomplicated; Z80.6 Family history of leukemia; Z78.9 Other specified health status; Z87.442 Personal history of urinary calculi; Z80.3 Family history of malignant neoplasm of breast; Z82.49 Family history of ischemic heart disease and other diseases of the circulatory system; Z88.0 Allergy status to penicillin; Z88.5 Allergy status to narcotic agent; Z68.24 Body mass index [BMI] 24.0-24.9, adult
CPT/HCPCS: 36415; 71045; 80053; 82140; 82270; 82728; 85007; 85025; 85027; 85610; 86850; 86900; 86901; 86920; 87081; 87426; 93005; 94760; 96365; 96367; 96375; C9113; G0378; J0696; J2405; P9047

== ENCOUNTER → 2021-12-01 | Outpatient (CLI) | payer OTHER ==
[~2021-12-01] MED LIST changes: -CIPR-173 PO; +FER325T PO; +FUR20T PO; +HYDR-4833 PO; +LEVO250T69 PO; +METO-517 PO; +PANT40T PO; +PANT40TA2 PO
[2021-12-01 10:45] LABS: Mean Corpuscular Volume 89.9 fL (80.0-100.0)
[2021-12-01 10:47] LABS: Hematocrit 18.8 % (36.0-46.0); Mean Corpuscular Hemoglobin 32.4 pg (28.0-32.0); Red Blood Cells 2.09 10^6/uL (4.0-5.20)
[2021-12-01 10:58] LABS: INR 1.61 (0.9-1.15); Red Cell Distribution Width 24.9 % (11.8-14.3)
[2021-12-01 11:00] LABS: Hemoglobin 6.8 g/dL (12.2-16.2)
[2021-12-01 11:01] LABS: Basophils % (manual) 0 (0.0-2.0); Blast Cells 0; Metamyelocytes % 0; Myelocytes % 0; Promyelocytes % 0; Reactive Lymphocytes 0
[2021-12-01 11:17] LABS: Albumin 2.5 g/dL (3.4-5.0); BUN/Creatinine Ratio 9.6; Calcium 8.8 mg/dL (8.5-10.1); Potassium 3.4 mmol/L (3.5-5.1)
[2021-12-01 11:29] LABS: Band Neutrophils % (manual) 6; Eosinophils % (manual) 2 (0-7); Lymphocytes % (manual) 29 (10.0-50.0); Monocytes % (manual) 7 (0-12)
[2021-12-01 11:30] LABS: Bilirubin, Total 3.8 mg/dL (0.2-1.0); Total Protein 7.6 g/dL (6.4-8.2)
== END | disposition home or self-care (01) ==
LOC: LAB 10:16
PROVIDERS: ATTEND Internal Medicine Nephrology
DX: N18.4 Chronic kidney disease, stage 4 (severe) (principal); K74.60 Unspecified cirrhosis of liver
CPT/HCPCS: 36415; 80053; 82140; 85007; 85027; 85610